=== PATIENT | female | born 1980 | race Caucasian/White ===

== ENCOUNTER 2020-10-28 20:47 | Emergency (ER) | payer MEDICAID, SELFPAY ==
[2020-10-28 20:53] VITALS: BP 188/89; PULSE 66; RESP 18; TEMP 36.8; O2SAT 97; BMI 40.7
--- NOTE | 2020-10-28 20:57 | ECG_ITS ---
Test Reason : CP Blood Pressure : / mmHG Vent. Rate : 072 BPM Atrial Rate : 072 BPM P-R Int : 182 ms QRS Dur : 084 ms QT Int : 428 ms P-R-T Axes : 044 000 021 degrees QTc Int : 468 ms Poor data quality, interpretation may be adversely affected Normal sinus rhythm Possible Anterior infarct , age undetermined Abnormal ECG When compared with ECG of 21-MAR-2018 13:01, No significant change was found Referred By: Generic ED Physician Electronically Signed By:Ildefonso Tello
--- NOTE | 2020-10-28 22:10 | XR_ITS ---
EXAMINATION: XR CHEST CLINICAL INFORMATION: Chest pain COMPARISON: 03/22/2020 TECHNIQUE: Frontal view of the chest was obtained. FINDINGS: No significant abnormality is noted involving the heart, lungs, mediastinum, bony thorax or soft tissues. XR/XR chest 1V IMPRESSION: Unremarkable examination.
--- NOTE | 2020-10-28 22:33 | ED.CHESTPAIN ---
HPI - Chest Pain General Chief Complaint: Chest Pain Stated Complaint: chest pain Time Seen by Provider: 10/28/20 22:10 Source: patient Mode of arrival: ambulatory History of Present Illness HPI narrative: This is a 40-year-old female with history of COPD and PVCs who states that today she began having headache with sinus like pressure without any associated fevers, chills and then states that she was having several episodes of her PVCs that ?felt different?. She denies any recent shortness of breath or increase in cough or sputum production but states that at approximately 6:30 p.m. this evening she began having chest pressure which she states was associated with left arm heaviness that has since completely resolved. Otherwise, she denies any GI symptoms or symptoms. Related Data Allergies Allergy/AdvReac Type Severity Reaction Status Date / Time trazodone [TRAZODONE] Allergy Unknown ANXIETY Verified 10/28/20 20:53 diazepam [From VALIUM] AdvReac Intermediate TREMORS Verified 10/28/20 20:53 hydrocodone [HYDROCODONE] AdvReac Intermediate NAUSEA & Verified 10/28/20 20:53 VOMITING From ULTRAM Allergy Unknown AGITATION Uncoded 07/10/20 17:10 Review of Systems Review of Systems: Pertinent positives and negatives as stated in the HPI 10 point review of systems is otherwise negative. PMFSH Past Medical History Source: nursing notes reviewed Medical History Anxiety Bipolar 1 disorder COPD (chronic obstructive pulmonary disease) Interstitial cystitis Opiate addiction PVC (premature ventricular contraction) Social History Social History Advance Directives: No Advance Directives Information Provided: No Physical Exam Vital Signs: Vital Signs: Last Vital Signs Temp 98.4 F 10/29/20 00:00 Pulse 63 10/29/20 00:00 Resp 16 10/29/20 00:00 BP 154/85 H 10/29/20 00:00 Pulse Ox 99 10/29/20 00:00 Body Mass Index 40.7 VITAL SIGNS: Reviewed. GENERAL: Well developed, well nourished, in no acute distress. HEAD: Normocephalic/atraumatic, EYES: PERRLA, EOMI intact without pain, no nystagmus/pallor/icterus noted EARS: Ext canals without abnormality, TMs non-bulging and non-erythematous NOSE: Nares patent bilateral OROPHARYNX: no oral lesions noted, posterior pharynx clear NECK: Supple, no adenopathy LUNGS: Normal breath sounds. No adventitious sounds or accessory muscle use. SpO2<97> CARDIOVASCULAR: Regular rate and rhythm without noted murmurs, no JVD or lower extremity edema. ABDOMEN: Obese, Soft, non-tender, non-distended with bowel sounds. No rigidity. No guarding. No palpable masses or hernias noted SKIN: Inspection of the skin reveals no rashes, mild diaphoresis noted NEUROLOGIC: Alert and oriented x 4. Course Course Course Narrative: This is a 40-year-old female with history and clinical presentation suggestive of possible opiate associated symptoms, but is also noted to have recently started a smoking cessation program with [employer]. Will investigate any cardiopulmonary etiologies. All investigations were reviewed and though there is a leukocytosis noted there is no corresponding left shift and no evidence on chest x-ray or urinalysis of infection. Chemistries were within normal limits and high sensitivity troponin taken together with an unchanged EKG doubt any cardiac ischemic event contributed to patient's presenting symptoms. All results and findings were discussed with her bedside and she was discharged home in stable condition. MDM - Chest Pain Lab Data Result diagrams: 10/28/20 22:32 10/28/20 22:32 Labs: Lab Results 10/28/20 10/28/20 10/28/20 Range/Units 22:32 22:32 22:32 WBC 15.2 H (4.8-10.8) X10*3/uL RBC 5.55 H (4.20-5.50) X10*6/uL Hgb 15.9 (12.0-16.0) g/dl Hct 48.9 H (37-47) % MCV 88.1 (80-98) fL MCH 28.6 (27.0-33.0) pg MCHC 32.5 (31.0-35.0) g/dl RDW 12.9 (11.0-16.0) % Plt Count 394 (160-400) X10*3/uL MPV 8.9 L (9.4-12.3) fL Immature Gran % (Auto) 0.5 H (0.0-0.4) % Neut % (Auto) 69.7 (45-73) % Lymph % (Auto) 23.2 (20-40) % [place] % (Auto) 4.7 (2-11) % Eos % (Auto) 1.4 (0-4) % Baso % (Auto) 0.5 (0-2) % Lymph # (Auto) 3.5 (1.2-4.9) X10*3/uL [place] # (Auto) 0.7 (0.1-1.2) X10*3/uL Eos # (Auto) 0.2 (0.0-0.4) X10*3/uL Baso # (Auto) 0.1 (0.0-0.2) X10*3/uL Abs Immat Gran (auto) 0.08 H (0.00-0.03) X10*3/uL Absolute Neuts (auto) 10.6 H (2.0-8.3) X10*3/uL Absolute Nucleated RBC 0.000 (0.0-0.012) X10*3/uL Nucleated RBC % (auto) 0.0 (0.0-0.2) /100WBC Sodium 136 (135-145) mmol/L Potassium 4.7 (3.3-5.1) mmol/l Chloride 99 (96-108) mmol/L Carbon Dioxide 26 (22-29) mmol/L Anion Gap 16 (12-20) BUN 7 L (9-16) mg/dL Creatinine 0.84 (0.5-1.4) mg/dL Estim Creat Clear Calc 109.4 Estimated GFR > 60 Random Glucose 115 (60-115) mg/dL Calcium 8.9 (8.4-10.2) mg/dL Total Bilirubin 0.3 (0.0-1.0) mg/dL AST 23 (5-31) U/L ALT 24 (0-31) U/L Alkaline Phosphatase 149 H (39-117) U/L Troponin I High Sens < 3.5 (<3.5-17.0) ng/L Total Protein 7.5 (6.5-8.0) g/dL Albumin 4.3 (3.5-5.0) g/dL Urine Color Urine Appearance Urine pH (5.0-8.0) Ur Specific [place] (1.005-1.025) Urine Protein (NEG-TRACE) MG/DL Urine Glucose (UA) (NEG) MG/DL Urine Ketones (NEG) MG/DL Urine Blood (NEG) Urine Nitrite (NEG) Ur Leukocyte Esterase (NEG) 10/29/20 Range/Units 00:21 WBC (4.8-10.8) X10*3/uL RBC (4.20-5.50) X10*6/uL Hgb (12.0-16.0) g/dl Hct (37-47) % MCV (80-98) fL MCH (27.0-33.0) pg MCHC (31.0-35.0) g/dl RDW (11.0-16.0) % Plt Count (160-400) X10*3/uL MPV (9.4-12.3) fL Immature Gran % (Auto) (0.0-0.4) % Neut % (Auto) (45-73) % Lymph % (Auto) (20-40) % [place] % (Auto) (2-11) % Eos % (Auto) (0-4) % Baso % (Auto) (0-2) % Lymph # (Auto) (1.2-4.9) X10*3/uL [place] # (Auto) (0.1-1.2) X10*3/uL Eos # (Auto) (0.0-0.4) X10*3/uL Baso # (Auto) (0.0-0.2) X10*3/uL Abs Immat Gran (auto) (0.00-0.03) X10*3/uL Absolute Neuts (auto) (2.0-8.3) X10*3/uL Absolute Nucleated RBC (0.0-0.012) X10*3/uL Nucleated RBC % (auto) (0.0-0.2) /100WBC Sodium (135-145) mmol/L Potassium (3.3-5.1) mmol/l Chloride (96-108) mmol/L Carbon Dioxide (22-29) mmol/L Anion Gap (12-20) BUN (9-16) mg/dL Creatinine (0.5-1.4) mg/dL Estim Creat Clear Calc Estimated GFR Random Glucose (60-115) mg/dL Calcium (8.4-10.2) mg/dL Total Bilirubin (0.0-1.0) mg/dL AST (5-31) U/L ALT (0-31) U/L Alkaline Phosphatase (39-117) U/L Troponin I High Sens (<3.5-17.0) ng/L Total Protein (6.5-8.0) g/dL Albumin (3.5-5.0) g/dL Urine Color YELLOW Urine Appearance CLEAR Urine pH 5.5 (5.0-8.0) Ur Specific [place] >= 1.030 H (1.005-1.025) Urine Protein NEG (NEG-TRACE) MG/DL Urine Glucose (UA) NEG (NEG) MG/DL Urine Ketones NEG (NEG) MG/DL Urine Blood TRACE (NEG) Urine Nitrite NEG (NEG) Ur Leukocyte Esterase NEG (NEG) ECG Data ECG #1: Attestation: I personally reviewed and interpreted this ECG as follows: Prior ECG tracings: available for review (03/21/2018 no acute changes on comparison) Interpretation: Normal sinus rhythm, HR -72, no evidence of acute ischemia (?possible anterior infarct? was seen on 03/21/2018), CT/QRS/QTC are within normal limits. Discharge Plan Discharge Clinical Impression: Atypical chest pain Patient Disposition: Home, Self-Care Instructions: Chest Pain (ED) Additional Instructions: Resume all home medications as prescribed. Recommend that you follow-up with your primary care provider for re-evaluation and outpatient management of your symptoms. Your symptoms may be related to smoking cessation. Please do not hesitate to return to the emergency department should you develop any acute worsening of your symptoms. Referrals: Margie Concepcion NP [Primary Care Provider] - 2 days (Re-evaluation outpatient management for atypical chest pain.)
[2020-10-28 22:37] LABS: MANUAL DIFF FLAG NO
[2020-10-28 22:38] LABS: Basophils Absolute Auto 0.1 X10*3/uL (0.0-0.2); Basophils Percent Auto 0.5 % (0-2); Eosinophils Absolute Auto 0.2 X10*3/uL (0.0-0.4); Eosinophils Percent Auto 1.4 % (0-4); Hematocrit 48.9 % (37-47); Hemoglobin 15.9 g/dl (12.0-16.0); Imm Gran Abs Auto 0.08 X10*3/uL (0.00-0.03); Imm Gran Pct Auto 0.5 % (0.0-0.4); Lymphocytes Absolute Auto 3.5 X10*3/uL (1.2-4.9); Lymphocytes Percent Auto 23.2 % (20-40); Mean Corpuscular HGB Conc 32.5 g/dl (31.0-35.0); Mean Corpuscular Hemoglobin 28.6 pg (27.0-33.0); Mean Corpuscular Volume 88.1 fL (80-98); Mean Platelet Volume 8.9 fL (9.4-12.3); Monocytes Absolute Auto 0.7 X10*3/uL (0.1-1.2); Monocytes Percent Auto 4.7 % (2-11); Neutrophils Absolute Auto 10.6 X10*3/uL (2.0-8.3); Neutrophils Percent Auto 69.7 % (45-73); Platelet Count 394 X10*3/uL (160-400); Red Blood Count 5.55 X10*6/uL (4.20-5.50); Red Cell Distribution Width 12.9 % (11.0-16.0); White Blood Count 15.2 X10*3/uL (4.8-10.8)
[2020-10-28 23:15] LABS: Alanine Aminotransferase 24 U/L (0-31); Albumin Level 4.3 g/dL (3.5-5.0); Alkaline Phosphatase 149 U/L (39-117); Anion Gap 16 (12-20); Aspartate Amino Transferase 23 U/L (5-31); Bilirubin Total 0.3 mg/dL (0.0-1.0); Blood Urea Nitrogen 7 mg/dL (9-16); Calcium 8.9 mg/dL (8.4-10.2); Carbon Dioxide 26 mmol/L (22-29); Chloride 99 mmol/L (96-108); Creatinine Clr Calc Pharmacy 109.4; Estimated Glomerular Filt Rate > 60; Glucose Random 115 mg/dL (60-115); Potassium 4.7 mmol/l (3.3-5.1); Sodium 136 mmol/L (135-145); Total Protein 7.5 g/dL (6.5-8.0)
[2020-10-28 23:19] LABS: Troponin-I High Sensitivity < 3.5 ng/L (<3.5-17.0)
[2020-10-29] VITALS: BP 154/85; PULSE 63; RESP 16; TEMP 36.9; O2SAT 99
[2020-10-29 00:39] LABS: Glucose Urine UA NEG (NEG); Leukocyte Esterase Urine NEG (NEG); Nitrite Urine NEG (NEG); PH 5.5 (5.0-8.0); Specific Gravity - Urine >= 1.030 (1.005-1.025); Urine Blood TRACE (NEG); Urine Ketones NEG (NEG); Urine Protein NEG (NEG-TRACE)
[2020-10-29 00:41] LABS: Appearance Urine CLEAR; Color Urine YELLOW
[2020-10-29 00:48] LABS: Bacteria Urine TRACE /LPF; RBC Urine 0-2 /HPF (0); Squamous Epithelial Cell Urine TRACE /LPF; WBC Urine 0-2 /HPF (0-4)
[2020-10-29 01:04] LABS: Amphetamine Screen Urine Not Detected (Not Detect); Barbiturates, Urine Not Detected (Not Detect); Benzodiazepines Screen Urine Not Detected (Not Detect); Cannabinoid Screen Urine Not Detected (Not Detect); Cocaine Screen Urine Not Detected (Not Detect); Opiate Screen Urine Not Detected (Not Detect); Phencyclidine Screen Urine Not Detected (Not Detect)
== END 2020-10-29 01:14 | disposition home or self-care (01) ==
PROVIDERS: Emergency Provider Student in an Organized Health Care Education/Training Program; PCP Nurse Practitioner Family
DX: R07.89 Other chest pain (principal); F11.10 Opioid abuse, uncomplicated; Z79.899 Other long term (current) drug therapy; J44.9 Chronic obstructive pulmonary disease, unspecified
CPT/HCPCS: 36415; 71045; 80053; 80307; 81001; 84484; 85025; 93005; 99283

== ENCOUNTER 2021-10-20 23:06 | Emergency (ER) | payer MEDICAID, SELFPAY ==
[2021-10-20 23:16] VITALS: BP 179/95; PULSE 83; RESP 15; TEMP 36.7; O2SAT 99; BMI 38.8
[2021-10-21 00:01] LABS: Appearance Urine HAZY; Color Urine YELLOW; Glucose Urine UA NEG (NEG); Leukocyte Esterase Urine NEG (NEG); Nitrite Urine NEG (NEG); PH 7.5 (5.0-8.0); Urine Blood NEG (NEG); Urine Ketones NEG (NEG); Urine Protein TRACE MG/DL (NEG-TRACE)
[2021-10-21 00:37] LABS: Alanine Aminotransferase 47 U/L (0-31); Alkaline Phosphatase 165 U/L (39-117); Anion Gap 14 (12-20); Aspartate Amino Transferase 39 U/L (5-31); Bilirubin Direct 0.2 mg/dL (0.0-0.5); Bilirubin Total 0.4 mg/dL (0.0-1.0); Blood Urea Nitrogen 6 mg/dL (9-16); Calcium 9.1 mg/dL (8.4-10.2); Carbon Dioxide 27 mmol/L (22-29); Chloride 101 mmol/L (96-108); Creatinine Clr Calc Pharmacy 113.5; Estimated Glomerular Filt Rate > 60; Glucose Random 138 mg/dL (60-115); Lipase 55 U/L (8-78); Potassium 4.4 mmol/L (3.3-5.1); Sodium 138 mmol/L (135-145); Total Protein 7.2 g/dL (6.5-8.0)
[2021-10-21 04:05] VITALS: BP 168/80; PULSE 84; RESP 16; TEMP 36.6; O2SAT 99
== END 2021-10-21 05:58 | disposition left against medical advice (07) ==
PROVIDERS: Emergency Provider Emergency Medicine
DX: R10.10 Upper abdominal pain, unspecified (principal)
CPT/HCPCS: 36415; 80053; 81003; 82248; 83690; 85025; 99283

== ENCOUNTER 2021-10-22 11:24 | Emergency (ER) | payer MEDICAID, SELFPAY ==
--- NOTE | ~2021-10-22 | US_ITS ---
EXAMINATION: US ABDOMEN LIMITED CLINICAL INFORMATION: Right upper quadrant pain. COMPARISON: CT scan of same day and of March 22, 2020 TECHNIQUE: Real-time imaging of the right upper quadrant abdominal viscera. FINDINGS: PANCREAS: Visualized portions of the head and body unremarkable without evidence of abnormal mass or peripancreatic inflammatory change. The tail of the pancreas is obscured by overlying bowel gas. LIVER: Hepatomegaly is present with vertical span of up to 21.5 cm. There is a subcentimeter cyst seen within the right lobe. The liver contour is normal. There is diffusely increased echogenicity consistent with fatty infiltration. There is no intrahepatic biliary duct dilatation seen. GALLBLADDER: Status post cholecystectomy. COMMON BILE DUCT: Normal in caliber measuring 0.7 cm in diameter. RIGHT KIDNEY: Normal. No hydronephrosis. No renal calculi or focal parenchymal lesions. The kidney measures 11.7 cm in maximum dimension. FREE FLUID: None. US/US abdomen limited IMPRESSION: Fatty infiltration of the liver. Hepatomegaly.
--- NOTE | ~2021-10-22 | CT_ITS ---
EXAMINATION: CT ABDOMEN AND PELVIS WITHOUT CONTRAST CLINICAL INFORMATION: Abdominal pain, diffuse. COMPARISON: 03/22/2020 TECHNIQUE: Multidetector volumetric imaging was performed from the superior aspect of the liver through the pubic symphysis. Sagittal and coronal reformatted images were obtained on the technologist's workstation. This CT examination was performed using dose optimization techniques as appropriate, variously including the following: *Automated exposure control *Adjustment of mA and/or kV according to patient size (this includes techniques or standardized protocols for targeted exams where dose is matched to indication/reason for exam; i.e. extremities or head) *Use of iterative reconstruction technique DLP: 868 mGy-cm FINDINGS: LUNG BASES: The visualized lung bases are unremarkable. LIVER, GALLBLADDER, AND BILIARY TREE: Relative hypoattenuation of the hepatic parenchyma is consistent with steatosis. The liver is enlarged, measuring craniocaudal. No focal lesions are identified on these images. Gallbladder is surgically absent. PANCREAS: Unremarkable. SPLEEN: Unremarkable. ADRENAL GLANDS: Normal KIDNEYS AND URETERS: A cluster of small calculi is evident at a lower pole calyx of the right kidney, with calculi measuring 4 mm in diameter. No obstructive uropathy. No additional renal or ureteral calculi. No hydronephrosis or hydroureter. Kidneys normal in size and contour. No suspicious lesions. There is a hypoattenuating (6 [place]) cystic focus at the interpolar region of the right kidney which was present on the prior study. No follow-up imaging recommended. BLADDER: Unremarkable. GASTROINTESTINAL TRACT: Stomach, small bowel, and colon are normal in caliber. No bowel wall thickening or surrounding inflammatory changes. Appendix is normal. No intraperitoneal free fluid or free air. ABDOMINAL WALL: No significant hernia is appreciated. LYMPH NODES: Normal. VASCULAR: Unremarkable. PELVIC VISCERA: The uterus and adnexa are unremarkable. OSSEOUS STRUCTURES: Mild degenerative disc disease in the thoracic spine with left convex scoliosis. There is mild osteoarthritis in the hips. CT/CT abdomen pelvis wo con IMPRESSION: Hepatomegaly and hepatic steatosis. No acute intra-abdominal or intrapelvic abnormalities. Small nonobstructing calculi at the right lower renal pole. No evidence of obstructive uropathy.
[2021-10-22 11:39] VITALS: BP 175/87; PULSE 72; RESP 19; TEMP 36.6; O2SAT 99; BMI 39.2
--- NOTE | 2021-10-22 12:59 | ED_ITS ---
HPI - Abdominal Pain General Chief Complaint: Abdominal Pain <JEAN-PIERRE Rolle - Last Filed: 10/22/21 18:02> Stated Complaint: abd pain, bloating <JEAN-PIERRE Rolle - Last Filed: 10/22/21 18:02> Time Seen by Provider: 10/22/21 12:59 <JEAN-PIERRE Rolle - Last Filed: 10/22/21 18:02> Source: patient <JEAN-PIERRE Rolle - Last Filed: 10/22/21 18:02> Mode of arrival: ambulatory <JEAN-PIERRE Rolle - Last Filed: 10/22/21 18:02> Limitations: no limitations <JEAN-PIERRE Rolle - Last Filed: 10/22/21 18:02> History of Present Illness HPI narrative: 41-year-old female past medical history significant for COPD, bipolar, anxiety, interstitial cystitis, PVCs presents to the emergency department with complaints of abdominal pain, distension times 1 week. Patient tells me that her abdominal distention has been present for about 2 months, progressively worsening. She tells me she feels bloated . She describes her abdominal pain is severe, 10/10, stabbing/ cramping. She tells me that the only thing that makes her abdominal pain better is methadone in the morning. Other than that she tells me the pain is excruciating throughout the day. She also reports a/c constipation for weeks and leg swelling. <JEAN-PIERRE Rolle - Last Filed: 10/22/21 18:02> MD elicited complaint: abdominal pain <JEAN-PIERRE Rolle - Last Filed: 10/22/21 18:02> Pertinent past history: none <JEAN-PIERRE Rolle - Last Filed: 10/22/21 18:02> Onset (ago): week(s) (1) <JEAN-PIERRE Rolle - Last Filed: 10/22/21 18:02> Pain Consistency: constant <JEAN-PIERRE Rolle - Last Filed: 10/22/21 18:02> Location: diffuse <JEAN-PIERRE Rolle - Last Filed: 10/22/21 18:02> Severity: severe <JEAN-PIERRE Rolle Last Filed: 10/22/21 18:02> Pain scale (0-10): 10 <JEAN-PIERRE Rolle - Last Filed: 10/22/21 18:02> Quality: cramping <JEAN-PIERRE Rolle Last Filed: 10/22/21 18:02> Radiation: none <JEAN-PIERRE Rolle - Last Filed: 10/22/21 18:02> Migration to: no migration <JEAN-PIERRE Rolle - Last Filed: 10/22/21 18:02> Exacerbating factors: nothing <JEAN-PIERRE Rolle - Last Filed: 10/22/21 18:02> Relieving factors: other (methadone) <JEAN-PIERRE Rolle Last Filed: 10/22/21 18:02> Associated symptoms: denies other symptoms <JEAN-PIERRE Rolle - Last Filed: 10/22/21 18:02> Related Data Allergies/Adverse Reactions: Allergies Allergy/AdvReac Type Severity Reaction Status Date / Time trazodone [TRAZODONE] Allergy Unknown ANXIETY Verified 10/28/20 20:53 diazepam [From VALIUM] AdvReac Intermediate TREMORS Verified 10/28/20 20:53 hydrocodone [HYDROCODONE] AdvReac Intermediate NAUSEA & Verified 10/28/20 20:53 VOMITING From ULTRAM Allergy Unknown AGITATION Uncoded 07/10/20 17:10 <JEAN-PIERRE Rolle Last Filed: 10/22/21 18:02> Review of Systems Review of Systems Constitutional : No Weight loss, No Fever, No Chills ENT/Mouth :? No sore throat, No Rhinorrhea Eyes: No Swelling, No Redness Cardiovascular : No Chest Pain, No SOB, + Edema Respiratory : No Cough, No Sputum, No Wheezing Gastrointestinal : No Nausea, No Vomiting, No Diarrhea, + abdominal Pain, No Hematochezia, No Melena Genitourinary : No Dysuria, No Urinary Frequency, No Hematuria, No Urgency Musculoskeletal : No joint pain, No Myalgias, No Joint Swelling Skin : No Skin Lesions, No rash Neuro : No Weakness, No Numbness, No Dizziness, No Headache Psych : No Anxiety/Panic, No Depression Heme/Lymph: No Bruising, No Lymphadenopathy Endocrine : No Polyuria, No Polydipsia All other systems reviewed and are negative. <JEAN-PIERRE Rolle - Last Filed: 10/22/21 18:02> Yes all other systems are reviewed and are negative <JEAN-PIERRE Rolle - Last Filed: 10/22/21 18:02> Physical Exam Vital Signs: Vital Signs: Last Vital Signs Temp 98.2 F 10/22/21 18:34 Pulse 60 10/22/21 18:34 Resp 18 10/22/21 18:34 BP 146/65 H 10/22/21 18:34 Pulse Ox 96 10/22/21 18:34 BMI result Body Mass Index 39.2 vital signs stable, patient noted to be slightly hypertensive. <JEAN-PIERRE Rolle - Last Filed: 10/22/21 18:02> Vital Signs: Last Vital Signs Temp 98.2 F 10/22/21 18:34 Pulse 60 10/22/21 18:34 Resp 18 10/22/21 18:34 BP 146/65 H 10/22/21 18:34 Pulse Ox 96 10/22/21 18:34 BMI result Body Mass Index 39.2 <JEAN-PIERRE Brock - Last Filed: 10/22/21 19:40> Appearance: Alert.? Oriented X3.? No acute distress.? Head: Normocephalic, atraumatic, no step-offs or deformities Eyes: Pupils equal, round and reactive to light.? ENT: Pharynx normal.? Neck: Normal inspection.? Neck supple.? CVS: Normal heart rate and rhythm.? Pulses normal.? Respiratory: No respiratory distress.? Breath sounds normal.? Abdomen: Soft and + Diffusely tender. normoactive bowel sounds. Abdominal distention with positive fluid wave noted.? Skin: Skin warm and dry.? Normal skin color.? Normal skin turgor.? Extremities: No lower extremity edema.? No calf ttp. 5/5 strength to bilateral upper and lower extremities Back: No midline tenderness, no C-spine tenderness, full range of motion, no CVA tenderness bilaterally Neuro: Oriented X 3.? No motor deficit.? No sensory deficit. <JEAN-PIERRE Rolle - Last Filed: 10/22/21 18:02> Course Reevaluation(s) Reevaluation #1: Patient noted to have a slight leukocytosis 11.3, however, this appears to be patient's baseline. Carbon dioxide elevated 34, patient's transaminases are noted to be elevated, they were previously elevated 2 days ago as well. Alk-phos also elevated. I will also order a RUQ US. <JEAN-PIERRE Rolle - Last Filed: 10/22/21 18:02> Time: 14:55 <JEAN-PIERRE Rolle - Last Filed: 10/22/21 18:02> Reevaluation #2: snow technician inform me that patient's line infiltrated and patient is reporting pain at the site. Warm compresses have been applied to the area. Likely phlebitis sign out was given to Jossy MOREJON <JEAN-PIERRE Rolle - Last Filed: 10/22/21 18:02> Time: 18:02 <JEAN-PIERRE Rolle - Last Filed: 10/22/21 18:02> Reevaluation #3: Patient's CT scans and right upper quadrant ultrasound showing hepatic steatosis and hepatomegaly. She reports her symptoms have been going on for years and she has had chronically elevated liver enzymes. She has never seen a GI doctor for this. She has known she has had fatty liver and has been trying to lose weight but her other medical problems make it difficult. She is interested in seeing a GI doctor for this. She is stable for discharge from the ER with plan for outpatient follow-up. Her phlebitis has significantly improved as well <JEAN-PIERRE Brock - Last Filed: 10/22/21 19:40> Time: 19:39 <JEAN-PIERRE Brokc - Last Filed: 10/22/21 19:40> MDM - Abdominal Pain MDM Narrative Medical decision making narrative: 1342 41 YO F COPD, bipolar, anxiety, interstitial cystitis, PVCs, opiate use d/o on methadone presents to ED with diffuse severe abdominal pain, and distention. No hx of hep C or cirrhosis. Never was a heavy drinker. PE Significant for distended abdomen normoactive bowel sounds and diffusely tender on palpation. Regular rate rhythm. Lungs are clear. No focal neuro deficits Plan- basic labs and CT scan <JEAN-PIERRE Rolle - Last Filed: 10/22/21 18:02> Medical Records Attestation: I reviewed the patient's medical records. <JEAN-PIERRE Rolle - Last Filed: 10/22/21 18:02> Lab Data Attestation: I reviewed the patient's lab results. <JEAN-PIERRE Rolle - Last Filed: 10/22/21 18:02> Result diagrams: : 10/22/21 14:16 10/22/21 14:16 <JEAN-PIERRE Rolle - Last Filed: 10/22/21 18:02> Labs: Lab Results 10/22/21 10/22/21 10/22/21 Range/Units 14:10 14:16 14:16 WBC 11.3 H (4.8-10.8) X10*3/uL RBC 4.71 (4.20-5.50) X10*6/uL Hgb 14.4 (12.0-16.0) g/dl Hct 43.9 (37.0-47.0) % MCV 93.2 (80.0-98.0) fL MCH 30.6 (27.0-33.0) pg MCHC 32.8 (31.0-35.0) g/dl RDW 13.4 (11.0-16.0) % Plt Count 315 (160-400) X10*3/uL MPV 9.5 (9.4-12.3) fL Immature Gran % (Auto) 0.9 H (0.0-0.4) % Neut % (Auto) 63.3 (45-73) % Lymph % (Auto) 27.8 (20-40) % Churchill % (Auto) 6.0 (2-11) % Eos % (Auto) 1.6 (0-4) % Baso % (Auto) 0.4 (0-2) % Lymph # (Auto) 3.1 (1.2-4.9) X10*3/uL Churchill # (Auto) 0.7 (0.1-1.2) X10*3/uL Eos # (Auto) 0.2 (0.0-0.4) X10*3/uL Baso # (Auto) 0.1 (0.0-0.2) X10*3/uL Abs Immat Gran (auto) 0.10 H (0.00-0.03) X10*3/uL Absolute Neuts (auto) 7.2 (2.0-8.3) x10*3/uL Absolute Nucleated RBC 0.000 (0.0-0.012) X10*3/uL Nucleated RBC % (auto) 0.0 (0.0-0.2) /100WBC Sodium 138 (135-145) mmol/L Potassium 4.3 (3.3-5.1) mmol/L Chloride 99 (96-108) mmol/L Carbon Dioxide 34 H (22-29) mmol/L Anion Gap 9 L (12-20) BUN 7 L (9-16) mg/dL Creatinine 0.72 (0.5-1.4) mg/dL Estim Creat Clear Calc 123.7 Estimated GFR > 60 Random Glucose 142 H (60-115) mg/dL Calcium 9.5 (8.4-10.2) mg/dL Magnesium 2.0 (1.6-2.6) mg/dL Total Bilirubin 0.5 (0.0-1.0) mg/dL AST 32 H (5-31) U/L ALT 49 H (0-31) U/L Alkaline Phosphatase 170 H (39-117) U/L B-Natriuretic Peptide (<100) pg/mL Total Protein 7.0 (6.5-8.0) g/dL Albumin 4.0 (3.5-5.0) g/dL Lipase 38 (8-78) U/L Beta HCG, Quant mIU/mL Urine Color Urine Appearance Urine pH (5.0-8.0) Ur Specific [place] (1.005-1.025) Urine Protein (NEG-TRACE) MG/DL Urine Glucose (UA) (NEG) MG/DL Urine Ketones (NEG) MG/DL Urine Blood (NEG) Urine Nitrite (NEG) Ur Leukocyte Esterase (NEG) Urine Test (NEGATIVE) COVID-19 ([facility]) Negative (Negative) COVID-19 Clin Com See Note 10/22/21 10/22/21 10/22/21 Range/Units 14:16 14:16 14:22 WBC (4.8-10.8) X10*3/uL RBC (4.20-5.50) X10*6/uL Hgb (12.0-16.0) g/dl Hct (37.0-47.0) % MCV (80.0-98.0) fL MCH (27.0-33.0) pg MCHC (31.0-35.0) g/dl RDW (11.0-16.0) % Plt Count (160-400) X10*3/uL MPV (9.4-12.3) fL Immature Gran % (Auto) (0.0-0.4) % Neut % (Auto) (45-73) % Lymph % (Auto) (20-40) % Churchill % (Auto) (2-11) % Eos % (Auto) (0-4) % Baso % (Auto) (0-2) % Lymph # (Auto) (1.2-4.9) X10*3/uL Churchill # (Auto) (0.1-1.2) X10*3/uL Eos # (Auto) (0.0-0.4) X10*3/uL Baso # (Auto) (0.0-0.2) X10*3/uL Abs Immat Gran (auto) (0.00-0.03) X10*3/uL Absolute Neuts (auto) (2.0-8.3) x10*3/uL Absolute Nucleated RBC (0.0-0.012) X10*3/uL Nucleated RBC % (auto) (0.0-0.2) /100WBC Sodium (135-145) mmol/L Potassium (3.3-5.1) mmol/L Chloride (96-108) mmol/L Carbon Dioxide (22-29) mmol/L Anion Gap (12-20) BUN (9-16) mg/dL Creatinine (0.5-1.4) mg/dL Estim Creat Clear Calc Estimated GFR Random Glucose (60-115) mg/dL Calcium (8.4-10.2) mg/dL Magnesium (1.6-2.6) mg/dL Total Bilirubin (0.0-1.0) mg/dL AST (5-31) U/L ALT (0-31) U/L Alkaline Phosphatase (39-117) U/L B-Natriuretic Peptide 44 (<100) pg/mL Total Protein (6.5-8.0) g/dL Albumin (3.5-5.0) g/dL Lipase (8-78) U/L Beta HCG, Quant < 2 mIU/mL Urine Color Urine Appearance Urine pH (5.0-8.0) Ur Specific [place] (1.005-1.025) Urine Protein (NEG-TRACE) MG/DL Urine Glucose (UA) (NEG) MG/DL Urine Ketones (NEG) MG/DL Urine Blood (NEG) Urine Nitrite (NEG) Ur Leukocyte Esterase (NEG) Urine Test NEGATIVE (NEGATIVE) COVID-19 ([facility]) (Negative) COVID-19 Clin Com 10/22/21 Range/Units 14:22 WBC (4.8-10.8) X10*3/uL RBC (4.20-5.50) X10*6/uL Hgb (12.0-16.0) g/dl Hct (37.0-47.0) % MCV (80.0-98.0) fL MCH (27.0-33.0) pg MCHC (31.0-35.0) g/dl RDW (11.0-16.0) % Plt Count (160-400) X10*3/uL MPV (9.4-12.3) fL Immature Gran % (Auto) (0.0-0.4) % Neut % (Auto) (45-73) % Lymph % (Auto) (20-40) % Churchill % (Auto) (2-11) % Eos % (Auto) (0-4) % Baso % (Auto) (0-2) % Lymph # (Auto) (1.2-4.9) X10*3/uL Churchill # (Auto) (0.1-1.2) X10*3/uL Eos # (Auto) (0.0-0.4) X10*3/uL Baso # (Auto) (0.0-0.2) X10*3/uL Abs Immat Gran (auto) (0.00-0.03) X10*3/uL Absolute Neuts (auto) (2.0-8.3) x10*3/uL Absolute Nucleated RBC (0.0-0.012) X10*3/uL Nucleated RBC % (auto) (0.0-0.2) /100WBC Sodium (135-145) mmol/L Potassium (3.3-5.1) mmol/L Chloride (96-108) mmol/L Carbon Dioxide (22-29) mmol/L Anion Gap (12-20) BUN (9-16) mg/dL Creatinine (0.5-1.4) mg/dL Estim Creat Clear Calc Estimated GFR Random Glucose (60-115) mg/dL Calcium (8.4-10.2) mg/dL Magnesium (1.6-2.6) mg/dL Total Bilirubin (0.0-1.0) mg/dL AST (5-31) U/L ALT (0-31) U/L Alkaline Phosphatase (39-117) U/L B-Natriuretic Peptide (<100) pg/mL Total Protein (6.5-8.0) g/dL Albumin (3.5-5.0) g/dL Lipase (8-78) U/L Beta HCG, Quant mIU/mL Urine Color YELLOW Urine Appearance CLEAR Urine pH 6.0 (5.0-8.0) Ur Specific [place] 1.025 (1.005-1.025) Urine Protein NEG (NEG-TRACE) MG/DL Urine Glucose (UA) NEG (NEG) MG/DL Urine Ketones NEG (NEG) MG/DL Urine Blood NEG (NEG) Urine Nitrite NEG (NEG) Ur Leukocyte Esterase NEG (NEG) Urine Test (NEGATIVE) COVID-19 ([facility]) (Negative) COVID-19 Clin Com <JEAN-PIERRE Rolle - Last Filed: 10/22/21 18:02> Lab Results 10/22/21 10/22/21 10/22/21 Range/Units 14:10 14:16 14:16 WBC 11.3 H (4.8-10.8) X10*3/uL RBC 4.71 (4.20-5.50) X10*6/uL Hgb 14.4 (12.0-16.0) g/dl Hct 43.9 (37.0-47.0) % MCV 93.2 (80.0-98.0) fL MCH 30.6 (27.0-33.0) pg MCHC 32.8 (31.0-35.0) g/dl RDW 13.4 (11.0-16.0) % Plt Count 315 (160-400) X10*3/uL MPV 9.5 (9.4-12.3) fL Immature Gran % (Auto) 0.9 H (0.0-0.4) % Neut % (Auto) 63.3 (45-73) % Lymph % (Auto) 27.8 (20-40) % Churchill % (Auto) 6.0 (2-11) % Eos % (Auto) 1.6 (0-4) % Baso % (Auto) 0.4 (0-2) % Lymph # (Auto) 3.1 (1.2-4.9) X10*3/uL Churchill # (Auto) 0.7 (0.1-1.2) X10*3/uL Eos # (Auto) 0.2 (0.0-0.4) X10*3/uL Baso # (Auto) 0.1 (0.0-0.2) X10*3/uL Abs Immat Gran (auto) 0.10 H (0.00-0.03) X10*3/uL Absolute Neuts (auto) 7.2 (2.0-8.3) x10*3/uL Absolute Nucleated RBC 0.000 (0.0-0.012) X10*3/uL Nucleated RBC % (auto) 0.0 (0.0-0.2) /100WBC Sodium 138 (135-145) mmol/L Potassium 4.3 (3.3-5.1) mmol/L Chloride 99 (96-108) mmol/L Carbon Dioxide 34 H (22-29) mmol/L Anion Gap 9 L (12-20) BUN 7 L (9-16) mg/dL Creatinine 0.72 (0.5-1.4) mg/dL Estim Creat Clear Calc 123.7 Estimated GFR > 60 Random Glucose 142 H (60-115) mg/dL Calcium 9.5 (8.4-10.2) mg/dL Magnesium 2.0 (1.6-2.6) mg/dL Total Bilirubin 0.5 (0.0-1.0) mg/dL AST 32 H (5-31) U/L ALT 49 H (0-31) U/L Alkaline Phosphatase 170 H (39-117) U/L B-Natriuretic Peptide (<100) pg/mL Total Protein 7.0 (6.5-8.0) g/dL Albumin 4.0 (3.5-5.0) g/dL Lipase 38 (8-78) U/L Beta HCG, Quant mIU/mL Urine Color Urine Appearance Urine pH (5.0-8.0) Ur Specific [place] (1.005-1.025) Urine Protein (NEG-TRACE) MG/DL Urine Glucose (UA) (NEG) MG/DL Urine Ketones (NEG) MG/DL Urine Blood (NEG) Urine Nitrite (NEG) Ur Leukocyte Esterase (NEG) Urine Test (NEGATIVE) COVID-19 ([facility]) Negative (Negative) COVID-19 Clin Com See Note 10/22/21 10/22/21 10/22/21 Range/Units 14:16 14:16 14:22 WBC (4.8-10.8) X10*3/uL RBC (4.20-5.50) X10*6/uL Hgb (12.0-16.0) g/dl Hct (37.0-47.0) % MCV (80.0-98.0) fL MCH (27.0-33.0) pg MCHC (31.0-35.0) g/dl RDW (11.0-16.0) % Plt Count (160-400) X10*3/uL MPV (9.4-12.3) fL Immature Gran % (Auto) (0.0-0.4) % Neut % (Auto) (45-73) % Lymph % (Auto) (20-40) % Churchill % (Auto) (2-11) % Eos % (Auto) (0-4) % Baso % (Auto) (0-2) % Lymph # (Auto) (1.2-4.9) X10*3/uL Churchill # (Auto) (0.1-1.2) X10*3/uL Eos # (Auto) (0.0-0.4) X10*3/uL Baso # (Auto) (0.0-0.2) X10*3/uL Abs Immat Gran (auto) (0.00-0.03) X10*3/uL Absolute Neuts (auto) (2.0-8.3) x10*3/uL Absolute Nucleated RBC (0.0-0.012) X10*3/uL Nucleated RBC % (auto) (0.0-0.2) /100WBC Sodium (135-145) mmol/L Potassium (3.3-5.1) mmol/L Chloride (96-108) mmol/L Carbon Dioxide (22-29) mmol/L Anion Gap (12-20) BUN (9-16) mg/dL Creatinine (0.5-1.4) mg/dL Estim Creat Clear Calc Estimated GFR Random Glucose (60-115) mg/dL Calcium (8.4-10.2) mg/dL Magnesium (1.6-2.6) mg/dL Total Bilirubin (0.0-1.0) mg/dL AST (5-31) U/L ALT (0-31) U/L Alkaline Phosphatase (39-117) U/L B-Natriuretic Peptide 44 (<100) pg/mL Total Protein (6.5-8.0) g/dL Albumin (3.5-5.0) g/dL Lipase (8-78) U/L Beta HCG, Quant < 2 mIU/mL Urine Color Urine Appearance Urine pH (5.0-8.0) Ur Specific [place] (1.005-1.025) Urine Protein (NEG-TRACE) MG/DL Urine Glucose (UA) (NEG) MG/DL Urine Ketones (NEG) MG/DL Urine Blood (NEG) Urine Nitrite (NEG) Ur Leukocyte Esterase (NEG) Urine Test NEGATIVE (NEGATIVE) COVID-19 ([facility]) (Negative) COVID-19 Clin Com 10/22/21 Range/Units 14:22 WBC (4.8-10.8) X10*3/uL RBC (4.20-5.50) X10*6/uL Hgb (12.0-16.0) g/dl Hct (37.0-47.0) % MCV (80.0-98.0) fL MCH (27.0-33.0) pg MCHC (31.0-35.0) g/dl RDW (11.0-16.0) % Plt Count (160-400) X10*3/uL MPV (9.4-12.3) fL Immature Gran % (Auto) (0.0-0.4) % Neut % (Auto) (45-73) % Lymph % (Auto) (20-40) % Churchill % (Auto) (2-11) % Eos % (Auto) (0-4) % Baso % (Auto) (0-2) % Lymph # (Auto) (1.2-4.9) X10*3/uL Churchill # (Auto) (0.1-1.2) X10*3/uL Eos # (Auto) (0.0-0.4) X10*3/uL Baso # (Auto) (0.0-0.2) X10*3/uL Abs Immat Gran (auto) (0.00-0.03) X10*3/uL Absolute Neuts (auto) (2.0-8.3) x10*3/uL Absolute Nucleated RBC (0.0-0.012) X10*3/uL Nucleated RBC % (auto) (0.0-0.2) /100WBC Sodium (135-145) mmol/L Potassium (3.3-5.1) mmol/L Chloride (96-108) mmol/L Carbon Dioxide (22-29) mmol/L Anion Gap (12-20) BUN (9-16) mg/dL Creatinine (0.5-1.4) mg/dL Estim Creat Clear Calc Estimated GFR Random Glucose (60-115) mg/dL Calcium (8.4-10.2) mg/dL Magnesium (1.6-2.6) mg/dL Total Bilirubin (0.0-1.0) mg/dL AST (5-31) U/L ALT (0-31) U/L Alkaline Phosphatase (39-117) U/L B-Natriuretic Peptide (<100) pg/mL Total Protein (6.5-8.0) g/dL Albumin (3.5-5.0) g/dL Lipase (8-78) U/L Beta HCG, Quant mIU/mL Urine Color YELLOW Urine Appearance CLEAR Urine pH 6.0 (5.0-8.0) Ur Specific [place] 1.025 (1.005-1.025) Urine Protein NEG (NEG-TRACE) MG/DL Urine Glucose (UA) NEG (NEG) MG/DL Urine Ketones NEG (NEG) MG/DL Urine Blood NEG (NEG) Urine Nitrite NEG (NEG) Ur Leukocyte Esterase NEG (NEG) Urine Test (NEGATIVE) COVID-19 ([facility]) (Negative) COVID-19 Clin Com <JEAN-PIERRE Brock - Last Filed: 10/22/21 19:40> Critical Care Time Critical Care Time Critical Care Time: No <JEAN-PIERRE Rolle - Last Filed: 10/22/21 18:02> Discharge Plan Discharge Clinical Impression: Phlebitis, Hepatic steatosis Abdominal pain Qualifiers: Abdominal location: generalized Qualified Code(s): R10.84 - Generalized abdominal pain <JEAN-PIERRE Rolle - Last Filed: 10/22/21 18:02> Patient Disposition: Home, Self-Care <JEAN-PIERRE Rolle - Last Filed: 10/22/21 18:02> Instructions: Non-Alcoholic Fatty Liver Disease (ED), Abdominal Pain (ED) <JEAN-PIERRE Rolle - Last Filed: 10/22/21 18:02> Additional Instructions: CT scan and ultrasound today showed fatty liver. See information provided. Recommend following up with GI-name and number below. Take your medications as prescribed. Follow-up with your primary care provider this week. Return to the emergency department with new or worsening symptoms. In case of emergency call 911 <JEAN-PIERRE Rolle - Last Filed: 10/22/21 18:02> Referrals: Margie Concepcion NP [Primary Care Provider] - 2 days Jimbo Nascimento [Physician] - 2 days (Hepatic steatosis, abdominal distention) <JEAN-PIERRE Rolle - Last Filed: 10/22/21 18:02> Stand Alone Forms: Work/School Release <JEAN-PIERRE Rolle - Last Filed: 10/22/21 18:02> PMFSH Past Medical History Attestation statement: The following information was validated with the patient. <JEAN-PIERRE Rolle - Last Filed: 10/22/21 18:02> Source: old records reviewed and nursing notes reviewed <JEAN-PIERRE Rolle - Last Filed: 10/22/21 18:02> Medical History: Medical History Anxiety Bipolar 1 disorder COPD (chronic obstructive pulmonary disease) Interstitial cystitis Opiate addiction PVC (premature ventricular contraction) <JEAN-PIERRE Rolle - Last Filed: 10/22/21 18:02> Social History Social History: Social History Advance Directives: No Advance Directives Information Provided: No Patient : No <JEAN-PIERRE Rolle - Last Filed: 10/22/21 18:02>
[2021-10-22 14:19] VITALS: BP 156/85; PULSE 71; RESP 18; TEMP 37; O2SAT 97
[2021-10-22 14:28] LABS: MANUAL DIFF FLAG NO
[2021-10-22 14:30] LABS: Basophils Absolute Auto 0.1 X10*3/uL (0.0-0.2); Basophils Percent Auto 0.4 % (0-2); Eosinophils Absolute Auto 0.2 X10*3/uL (0.0-0.4); Eosinophils Percent Auto 1.6 % (0-4); Hematocrit 43.9 % (37.0-47.0); Hemoglobin 14.4 g/dl (12.0-16.0); Imm Gran Pct Auto 0.9 % (0.0-0.4); Lymphocytes Absolute Auto 3.1 X10*3/uL (1.2-4.9); Lymphocytes Percent Auto 27.8 % (20-40); Mean Corpuscular HGB Conc 32.8 g/dl (31.0-35.0); Mean Corpuscular Hemoglobin 30.6 pg (27.0-33.0); Mean Corpuscular Volume 93.2 fL (80.0-98.0); Mean Platelet Volume 9.5 fL (9.4-12.3); Monocytes Absolute Auto 0.7 X10*3/uL (0.1-1.2); Neutrophils Absolute Auto 7.2 x10*3/uL (2.0-8.3); Neutrophils Percent Auto 63.3 % (45-73); Platelet Count 315 X10*3/uL (160-400); Red Blood Count 4.71 X10*6/uL (4.20-5.50); Red Cell Distribution Width 13.4 % (11.0-16.0); White Blood Count 11.3 X10*3/uL (4.8-10.8)
[2021-10-22 14:31] LABS: Appearance Urine CLEAR; Color Urine YELLOW; Glucose Urine UA NEG (NEG); Leukocyte Esterase Urine NEG (NEG); Nitrite Urine NEG (NEG); Specific Gravity - Urine 1.025 (1.005-1.025); Urine Blood NEG (NEG); Urine Ketones NEG (NEG); Urine Protein NEG (NEG-TRACE)
[2021-10-22 14:33] LABS: UPreg QC Valid YES; Urine Pregnancy NEGATIVE (NEGATIVE)
[2021-10-22 14:46] LABS: COVID-19 Test Negative (Negative)
[2021-10-22 14:46] LABS: Alanine Aminotransferase 49 U/L (0-31); Alkaline Phosphatase 170 U/L (39-117); Anion Gap 9 (12-20); Aspartate Amino Transferase 32 U/L (5-31); Bilirubin Total 0.5 mg/dL (0.0-1.0); Blood Urea Nitrogen 7 mg/dL (9-16); Calcium 9.5 mg/dL (8.4-10.2); Carbon Dioxide 34 mmol/L (22-29); Chloride 99 mmol/L (96-108); Creatinine Clr Calc Pharmacy 123.7; Estimated Glomerular Filt Rate > 60; Glucose Random 142 mg/dL (60-115); Lipase 38 U/L (8-78); Potassium 4.3 mmol/L (3.3-5.1); Sodium 138 mmol/L (135-145)
[2021-10-22 14:48] LABS: B Type Natriuretic Peptide 44 pg/mL (<100)
[2021-10-22 14:49] LABS: HCG Quantitative < 2 mIU/mL
[2021-10-22 16:08] VITALS: BP 154/74; PULSE 66; RESP 18; TEMP 36.7; O2SAT 97
[2021-10-22 18:34] VITALS: BP 146/65; PULSE 60; RESP 18; TEMP 36.8; O2SAT 96
== END 2021-10-22 19:40 | disposition home or self-care (01) ==
PROVIDERS: Physician Assistant; Emergency Provider Emergency Medicine; PCP Nurse Practitioner Family
DX: I80.9 Phlebitis and thrombophlebitis of unspecified site (principal); K76.0 Fatty (change of) liver, not elsewhere classified; R60.0 Localized edema; R10.84 Generalized abdominal pain; Z20.822 Contact with and (suspected) exposure to COVID-19; Z79.899 Other long term (current) drug therapy
CPT/HCPCS: 36415; 74176; 76705; 80053; 81003; 81025; 83690; 83735; 83880; 84702; 85025; 87635; 96374; 99284

== ENCOUNTER 2022-07-29 11:31 | Outpatient (REF) | payer MEDICAID, SELFPAY ==
[2022-07-29 11:53] LABS: MANUAL DIFF FLAG NO
[2022-07-29 12:19] LABS: Basophils Absolute Auto 0.1 X10*3/uL (0.0-0.2); Basophils Percent Auto 0.6 % (0-2); Eosinophils Absolute Auto 0.2 X10*3/uL (0.0-0.4); Eosinophils Percent Auto 1.2 % (0-4); Hematocrit 47.7 % (37.0-47.0); Hemoglobin 15.5 g/dl (12.0-16.0); Imm Gran Abs Auto 0.09 X10*3/uL (0.00-0.03); Imm Gran Pct Auto 0.7 % (0.0-0.4); Lymphocytes Absolute Auto 3.3 X10*3/uL (1.2-4.9); Lymphocytes Percent Auto 25.7 % (20-40); Mean Corpuscular HGB Conc 32.5 g/dl (31.0-35.0); Mean Corpuscular Hemoglobin 28.9 pg (27.0-33.0); Mean Corpuscular Volume 88.8 fL (80.0-98.0); Mean Platelet Volume 10.4 fL (9.4-12.3); Monocytes Absolute Auto 0.6 X10*3/uL (0.1-1.2); Monocytes Percent Auto 4.9 % (2-11); Neutrophils Absolute Auto 8.7 x10*3/uL (2.0-8.3); Neutrophils Percent Auto 66.9 % (45-73); Platelet Count 313 X10*3/uL (160-400); Red Blood Count 5.37 X10*6/uL (4.20-5.50); Red Cell Distribution Width 13.6 % (11.0-16.0); White Blood Count 12.9 X10*3/uL (4.8-10.8)
[2022-07-29 12:24] LABS: INTERNATIONAL NORM RATIO 0.9 (0.9-1.1); Prothrombin Time 10.7 SEC (10.0-13.1)
[2022-07-29 13:01] LABS: Alanine Aminotransferase 50 U/L (0-31); Albumin Level 4.3 g/dL (3.5-5.0); Alkaline Phosphatase 181 U/L (39-117); Aspartate Amino Transferase 39 U/L (5-31); Bilirubin Direct 0.2 mg/dL (0.0-0.5); Bilirubin Total 0.4 mg/dL (0.0-1.0); Iron 64 mcg/dL (30-160); Percent Iron Saturation 24 % (15-50); Total Iron Binding Capacity 263 mcg/dL (228-428); Total Protein 7.1 g/dL (6.5-8.0); Unsaturated Iron Binding 199 ug/dL
[2022-07-29 13:24] LABS: Ferritin 249 ng/mL (10-250); TSH reflex Free T4 0.84 uIU/mL (0.32-4.0)
[2022-07-30 03:58] LABS: Hepatitis A Antibody IgG Nonreactive (Nonreactive); ~Hepatitis A Antibody IgG 0.31 S/CO (0.00-0.99)
[2022-07-30 04:10] LABS: HBS Num1 7.81 mIU/mL (0-7.99); HBc Num1 0.05 S/CO (0.00-0.79); HBsAGNum1 1.25 S/CO (0.00-0.99); Hepatitis B Core Antibody Nonreactive (Nonreactive); ~HepC Num1 0.17 S/CO (0.00-0.79); ~Hepatitis B Surface Antibody NONREACTIVE (Nonreactive); ~Hepatitis C Antibody Nonreactive (Nonreactive)
[2022-07-30 05:00] LABS: HBsAGNum2 Reactive; HBsAGNum3 Reactive; Hepatitis B Surface Antigen Retest CNFM (Negative)
[2022-07-30 05:49] LABS: Hepatitis B Surface Antigen Rep Reactive (Negative); Neutralization % 14; R2 S/CO 1.08 S/CO
[2022-07-31 14:07] LABS: Alpha 1 Anti-trypsin 212 mg/dL (83-199); Ceruloplasmin 32 mg/dL (18-53)
[2022-08-03 01:17] LABS: FIB-ALT 45 U/L (6-29); FIB-Alpha-2-Macroglobulin 206 mg/dL (106-279); FIB-Apolipoprotein A1 156 mg/dL (101-198); FIB-GGT 218 U/L (3-55); FIB-Haptoglobin 259 mg/dL (43-212); FIB-Total Bilirubin 0.3 mg/dL (0.2-1.2); Liver Fibrosis Score 0.15; Liver Fibrosis Stage F0; Nec Inflam Act Grade A0-A1; Nec Inflam Act Score 0.21
[2022-08-04 09:32] LABS: Mitochondrial Antibodies NEGATIVE (NEGATIVE)
[2022-08-04 13:26] LABS: ANA Titer 2 1:40 titer; Anti Nuclear Antibody Screen POSITIVE (NEGATIVE); Anti Nuclear Antibody Titer 1:40 titer
[2022-08-04 23:17] LABS: Smooth Muscle Antibody <20 U (<20)
== END 2022-07-29 11:32 | disposition home or self-care (01) ==
LOC: HO.LAB 11:31
PROVIDERS: PCP Nurse Practitioner Family; Visit Provider Internal Medicine
DX: K76.0 Fatty (change of) liver, not elsewhere classified (principal); R14.0 Abdominal distension (gaseous); R16.0 Hepatomegaly, not elsewhere classified; R79.89 Other specified abnormal findings of blood chemistry
CPT/HCPCS: 36415; 80076; 81596; 82103; 82390; 82728; 83540; 84443; 85025; 85610; 86015; 86038; 86039; 86255; 86256; 86704; 86706; 86708; 86803; 87340

== ENCOUNTER 2022-08-09 09:36 | Outpatient (REF) | payer MEDICAID, SELFPAY ==
[2022-08-09 10:39] LABS: Alanine Aminotransferase 38 U/L (0-31); Albumin Level 4.2 g/dL (3.5-5.0); Alkaline Phosphatase 153 U/L (39-117); Aspartate Amino Transferase 36 U/L (5-31); Bilirubin Direct 0.3 mg/dL (0.0-0.5); Bilirubin Total 0.5 mg/dL (0.0-1.0); Total Protein 6.9 g/dL (6.5-8.0)
[2022-08-09 10:49] LABS: HBS Num1 8.01 mIU/mL (0-7.99); HBc Num1 0.07 S/CO (0.00-0.79); HBsAGNum1 1.26 S/CO (0.00-0.99); HIV AB/AG Nonreactive (Nonreactive); HIV Num 1 0.08 S/CO (0.00-0.99); Hepatitis B Core Antibody Nonreactive (Nonreactive)
[2022-08-09 13:13] LABS: HBS Num2 6.15 mIU/mL (0-7.99); HBS Num3 6.08 mIU/mL (0-7.99); HBsAGNum2 1.38; HBsAGNum3 1.4; ~Hepatitis B Surface Antibody NONREACTIVE (Nonreactive)
[2022-08-10 13:06] LABS: Neutral % 500 0; R2 SCO 500 0.26 S/CO
[2022-08-10 13:07] LABS: Hepatitis B Surface Antigen Rep Reactive (Negative)
[2022-08-11 11:06] LABS: Alpha Fetoprotein 3.4 ng/mL
[2022-08-11 22:42] LABS: Hepatitis BE Antibody NON-REACTIVE (NON-REACTIVE); Hepatitis BE Antigen NON-REACTIVE (NON-REACTIVE)
[2022-08-12 23:37] LABS: Hepatitis B Viral DNA QN Log <1.00 NOT DETECTED Log IU/mL; Hepatitis B Viral DNA Qn-IU/mL <10 NOT DETECTED IU/mL
[2022-08-18 19:23] LABS: Hepatitis Delta Antibody NEGATIVE
== END 2022-08-09 09:37 | disposition home or self-care (01) ==
LOC: HO.LAB 09:36
PROVIDERS: Internal Medicine; PCP Nurse Practitioner Family; Visit Provider Internal Medicine
DX: B19.10 Unspecified viral hepatitis B without hepatic coma (principal); R79.89 Other specified abnormal findings of blood chemistry
CPT/HCPCS: 36415; 80076; 82105; 86692; 86704; 86706; 86707; 87340; 87350; 87389; 87912

== ENCOUNTER 2023-01-19 08:14 | Outpatient (REF) | payer MEDICAID, SELFPAY ==
--- NOTE | ~2023-01-19 | US_ITS ---
EXAMINATION: US ABDOMEN COMPLETE CLINICAL INFORMATION: Elevated LFTs, hepatomegaly. COMPARISON: Ultrasound abdomen limited 10/22/2021. CT abdomen and pelvis without contrast 10/22/2021. TECHNIQUE: Real-time imaging of the abdominal viscera. FINDINGS: PANCREAS: Normal. ABDOMINAL AORTA: The proximal, mid, and distal segments are normal in caliber. INFERIOR VENA CAVA: Visualized portions are normal. LIVER: The liver is enlarged measuring 19 cm. The liver contour is normal. There is diffuse increased liver parenchymal echogenicity, consistent with hepatic steatosis. There is a 2.2 cm simple cyst in the right hepatic lobe. No imaging follow-up is recommended. There is no intrahepatic biliary duct dilatation seen. GALLBLADDER: Surgically absent. COMMON BILE DUCT: Normal in caliber measuring 0.7 cm in diameter. RIGHT KIDNEY: There is a 2.1 cm Bosniak 2 cyst with layering milk of calcium in the upper pole. No imaging follow-up is recommended. No hydronephrosis. The kidney measures 10.2 cm in maximum dimension. LEFT KIDNEY: There is a 5 mm nonobstructing calculus in the upper pole. No hydronephrosis or focal parenchymal lesions. The kidney measures 12.2 cm in maximum dimension. SPLEEN: Enlarged. The spleen measures 13.7 cm in maximum dimension. FREE FLUID: None. US/US abdomen complete IMPRESSION: Enlarged liver fatty infiltration. Enlarged spleen.
== END 2023-01-19 08:15 | disposition home or self-care (01) ==
LOC: HO.HMGCX 08:14
PROVIDERS: PCP Nurse Practitioner Family; Visit Provider Internal Medicine
DX: R16.0 Hepatomegaly, not elsewhere classified (principal); R79.89 Other specified abnormal findings of blood chemistry; K76.0 Fatty (change of) liver, not elsewhere classified
CPT/HCPCS: 76700

== ENCOUNTER 2023-02-15 14:30 | Emergency (ER) | payer OTHER, SELFPAY ==
--- NOTE | ~2023-02-15 | XR_ITS ---
EXAMINATION: XR WRIST, RIGHT XR HAND, RIGHT CLINICAL INFORMATION: Wrist injury COMPARISON: None available. TECHNIQUE: PA, lateral, and oblique views of the right wrist and hand with a scaphoid view of the right wrist. FINDINGS: No fracture. Alignment is anatomic. Small marginal osteophytes along the interphalangeal joint of the thumb, metacarpal phalangeal joint and first CMC joint. Joint spaces are maintained. No erosions or soft tissue calcifications. XR/XR hand wrist RT IMPRESSION: * No acute findings. * Mild degenerative changes as described.
[2023-02-15 14:56] VITALS: BP 146/93; PULSE 70; RESP 20; TEMP 36.4; O2SAT 98; BMI 35.3
--- NOTE | 2023-02-15 14:56 | ED_ITS ---
HPI - Extremity Injury (Upper) General Chief Complaint: Extremity Injury, Upper <JEAN-PIERRE Cardona - Last Filed: 02/15/23 15:00> Stated Complaint: R arm inj <JEAN-PIERRE Cardona - Last Filed: 02/15/23 15:00> Time Seen by Provider: 02/15/23 15:10 <JEAN-PIERRE Cardona - Last Filed: 02/15/23 15:00> Source: patient <Janis Chopra NP - Last Filed: 02/15/23 17:08> Mode of arrival: ambulatory <Janis Chopra NP - Last Filed: 02/15/23 17:08> Limitations: no limitations <SAY Rodrigues Last Filed: 02/15/23 17:08> History of Present Illness HPI narrative: 42-year-old female OUD on methadone, asthma [id number] here with complaints of pain to the right hand and 5th finger which occurred after she hit her hand on the wall. Patient reports she had a bag of bagels in her hand and she went to hit her partner with them as they were playing around but she missed hitting her hand against the wall. Since then she has pain and swelling to the right hand and right 5th digit. She denies any numbness, tingling or weakness of the extremity <Janis Chopra NP - Last Filed: 02/15/23 17:08> Related Data Allergies/Adverse Reactions: Allergies Allergy/AdvReac Type Severity Reaction Status Date / Time trazodone [TRAZODONE] Allergy Unknown ANXIETY Verified 10/28/20 20:53 diazepam [From VALIUM] AdvReac Intermediate TREMORS Verified 10/28/20 20:53 hydrocodone [HYDROCODONE] AdvReac Intermediate NAUSEA & Verified 10/28/20 20:53 VOMITING From ULTRAM Allergy Unknown AGITATION Uncoded 07/10/20 17:10 <JEAN-PIERRE Cardona - Last Filed: 02/15/23 15:00> Review of Systems Review of Systems: Yes all other systems are reviewed and are negative <SAY Rodrigues Last Filed: 02/15/23 17:08> Constitutional: Constitutional: Reports no additional constitutional complaints, Denies body ache(s), Denies chills, Denies fever(s), Denies headache(s) and Denies weakness <Janis Chopra RETORT LOAD EXPEDITER - Last Filed: 02/15/23 17:08> Eyes: Eyes: Reports no additional eye complaints and Denies change in vision <Janis Chopra [employer] LO[employer] EXPEDITER - Last Filed: 02/15/23 17:08> ENT: Reports system reviewed and no additional complaints, except as documented, Denies dizziness, Denies headache(s), Denies nasal congestion, Denies nasal discharge and Denies neck pain <Jains Chopra [employer] LO[employer] EXPEDITER - Last Filed: 02/15/23 17:08> Cardiovascular: Cardiovascular: Reports no additional cardiovascular complaints, Denies chest pain, Denies leg edema and Denies dyspnea <Janis Chopra [employer] LO[employer] EXPEDITER - Last Filed: 02/15/23 17:08> Respiratory: Respiratory: Reports no additional respiratory complaints, Denies cough and Denies dyspnea <Janis Chopra [employer] LO[employer] EXPEDITER - Last Filed: 02/15/23 17:08> Gastrointestinal: Gastrointestinal: Reports no additional gastrointestinal complaints, Denies abdominal pain, Denies diarrhea, Denies nausea and Denies vomiting <Janis Chopra [employer] LO[employer] EXPEDITER - Last Filed: 02/15/23 17:08> Genitourinary: Genitourinary: Reports no additional female genitourinary complaints and Denies urinary incontinence <Janis Chopra [employer] LO[employer] EXPEDITER - Last Filed: 02/15/23 17:08> Musculoskeletal: Musculoskeletal: Reports no additional musculoskeletal complaints, Denies back pain, Reports arthralgias, Reports joint swelling, Reports limited range of motion, Denies neck pain, Denies numbness and Denies tingling <Janis Chopra [employer] LO[employer] EXPEDITER - Last Filed: 02/15/23 17:08> Integumentary/Breasts: Skin/Breast: Reports system reviewed and no additional complaints, except as docu and Denies rash <Janis Chopra [employer] LO[employer] EXPEDITER - Last Filed: 02/15/23 17:08> Neurologic: Reports system reviewed and no additional complaints, except as documented, Denies Abnormal speech present, Denies dizziness, Denies headache(s), Denies numbness, Denies tingling and Denies weakness <Janis Chopra NP - Last Filed: 02/15/23 17:08> [facility] Past Medical History Attestation statement: The following information was validated with the patient. <Janis Chopra NP - Last Filed: 02/15/23 17:08> Source: old records reviewed and nursing notes reviewed <Janis Chopra NP - Last Filed: 02/15/23 17:08> Medical History: Medical History Anxiety Bipolar 1 disorder COPD (chronic obstructive pulmonary disease) Interstitial cystitis Opiate addiction PVC (premature ventricular contraction) <JEAN-PIERRE Cardona - Last Filed: 02/15/23 15:00> Social History Social History: Social History Advance Directives: No Advance Directives Information Provided: Yes <JEAN-PIERRE Cardona - Last Filed: 02/15/23 15:00> Physical Exam Vital Signs: Vital Signs: Last Vital Signs Temp 97.6 F 02/15/23 14:56 Pulse 70 02/15/23 14:56 Resp 20 02/15/23 14:56 BP 146/93 H 02/15/23 14:56 Pulse Ox 98 02/15/23 14:56 O2 Del Method Room Air 02/15/23 14:56 BMI result Body Mass Index 35.3 <JEAN-PIERRE Cardona - Last Filed: 02/15/23 15:00> Vital Signs: Last Vital Signs Temp 97.6 F 02/15/23 14:56 Pulse 70 02/15/23 14:56 Resp 20 02/15/23 14:56 BP 146/93 H 02/15/23 14:56 Pulse Ox 98 02/15/23 14:56 O2 Del Method Room Air 02/15/23 14:56 BMI result Body Mass Index 35.3 <Janis Chopra NP - Last Filed: 02/15/23 17:08> Const: General: cooperative, healthy appearing, comfortable and no acute distress <Janis Chopra NP - Last Filed: 02/15/23 17:08> Orientation/consciousness: patient oriented x3 <Janis Chopra [employer] LO[employer] EXPEDITER - Last Filed: 02/15/23 17:08> Limitations: no limitations <Janis Chopra [employer] LO[employer] EXPEDITER - Last Filed: 02/15/23 17:08> HEENT: Head: Yes normal to inspection <Janis Chopra [employer] LO[employer] EXPEDITER - Last Filed: 02/15/23 17:08> Ears: hearing grossly normal bilaterally <Janis Chopra [employer] LO[employer] EXPEDITER - Last Filed: 02/15/23 17:08> General nose exam: Normal external nose present <Janis Chopra [employer] LO[employer] EXPEDITER - Last Filed: 02/15/23 17:08> Face and sinus: Yes normal facial exam <Janis Chopra [employer] LO[employer] EXPEDITER - Last Filed: 02/15/23 17:08> Mouth: Normal oral and palatal mucosa present <Janis Chopra, [employer] LO[employer] EXPEDITER - Last Filed: 02/15/23 17:08> Throat: Yes posterior oropharynx normal <Janis Chopra, [employer] LO[employer] EXPEDITER - Last Filed: 02/15/23 17:08> Eyes: General: appearance normal, both eyes and all related structures <Janis Chopra, [employer] LO[employer] EXPEDITER - Last Filed: 02/15/23 17:08> Pupils: Equal, round and reactive pupils present <Janis Chopra [employer] LO[employer] EXPEDITER - Last Filed: 02/15/23 17:08> Neck: Neck: Yes normal visual inspection <Janis Chopra [employer] LO[employer] EXPEDITER - Last F iled: 02/15/23 17:08> Chest: Chest palpation & inspection: normal inspection of the chest <Janis Chopra [employer] LO[employer] EXPEDITER - Last Filed: 02/15/23 17:08> Resp: Effort & Inspection: normal respiratory effort <Janis Chopra [employer] LO[employer] EXPEDITER - Last Filed: 02/15/23 17:08> Auscultation: clear to auscultation bilaterally <Janis Chopra [employer] LO[employer] EXPEDITER - Last Filed: 02/15/23 17:08> Cardio: Rate: regular rate <Janis Chopra [employer] LO[employer] EXPEDITER - Last Filed: 02/15/23 17:08> Rhythm: regular rhythm <Janis Pascucci, [employer] LO[employer] EXPEDITER - Last Filed: 02/15/23 17:08> Peripheral pulses: Peripheral pulses 2+ throughout <Janis Chopra, RET[employer] LOAD EXPEDITER - Last Filed: 02/15/23 17:08> GI: Inspection: Yes normal to inspection <Janis Chopra, RET[employer] LOAD EXPEDITER - Last Filed: 02/15/23 17:08> Palpation (GI): Soft to palpation and nontender <Janis Braunmoylissy, RETORT LOAD EXPEDITER - Last Filed: 02/15/23 17:08> Auscultation: normal bowel sounds <Janis Chopra, RETORT LOAD EXPEDITER - Last Filed: 02/15/23 17:08> Back/Spine/Pelvis: Thoracic/Lumbar Spine: thoracic and lumbar spine normal to inspection <Janis Braunmoylissy, RETORT LOAD EXPEDITER - Last Filed: 02/15/23 17:08> Skin: General skin exam: no rashes or lesions noted <Janis Braunmoylissy, [employer] LOAD EXPEDITER - Last Filed: 02/15/23 17:08> Neuro: General: patient oriented x3, no focal motor deficits and normal sensation to monofilament <Janis Chopra, RETORT LOAD EXPEDITER - Last Filed: 02/15/23 17:08> Cranial nerves: Yes Equal, round and reactive pupils present <Janis Braunmoylissy, RETORT LOAD EXPEDITER - Last Filed: 02/15/23 17:08> Cognition (Neuro): normal cognition <Janis Braunmoylissy, RETORT LOAD EXPEDITER - Last Filed: 02/15/23 17:08> Speech: No Abnormal speech present <Janis Braunmoylissy, RETORT LOAD EXPEDITER - Last Filed: 02/15/23 17:08> Gait exam (Neuro): Normal gait present <Janis Braunmoylissy, RETORT LOAD EXPEDITER - Last Filed: 02/15/23 17:08> Motor exam (neuro): 5/5 motor strength present throughout <Janis Braunmoylissy, RETORT LOAD EXPEDITER - Last Filed: 02/15/23 17:08> Extrem: Other: There is tenderness on palpation over the right hand over the dorsal aspect of the 4th and 5th meta carpal as well as over the entire 5th digit. Patient has intact range of motion both passively and actively of the wrist, hand and digits. Sensation is intact distally. Normal DP and PT pulses. <Janis Chopra NP - Last Filed: 02/15/23 17:08> General: Yes normal to inspection <Janis Chopra NP - Last Filed: 02/15/23 17:08> Course Course Course Narrative: RME: 42yo female with a past medical history anxiety, bipolar, COPD, PVCs, presenting to ED complaining of R hand/wrist pain and swelling s/p trowing bag of bagels at and hitting hand against wall. +R 5th digit MCP ecchymosis & swelling w/ttp. Limited ROM hand 2/2 pain. NV intact XRs ordered Full HPI, ROS and PE to be performed by primary ED provider. <JEAN-PIERRE Cardona - Last Filed: 02/15/23 15:00> Reevaluation(s) Reevaluation #1: X-ray show no fracture. Likely contusion. Reviewed supportive care at home. Reviewed rice. Reviewed worrisome signs and symptoms of when to return to the emergency room. Comfortable plan for discharge home <Janis Chopra NP - Last Filed: 02/15/23 17:08> Medications Administered Discontinued Medications Generic Name Dose Route Start Last Admin Trade Name Freq PRN Reason Stop Dose Admin Ibuprofen 800 mg 02/15/23 16:27 02/15/23 16:38 Ibuprofen 800 Mg Tablet PO 02/15/23 16:28 800 mg ONCE ONE Administration <JEAN-PIERRE Cardona - Last Filed: 02/15/23 15:00> Medications Administered Discontinued Medications Generic Name Dose Route Start Last Admin Trade Name Freq PRN Reason Stop Dose Admin Ibuprofen 800 mg 02/15/23 16:27 02/15/23 16:38 Ibuprofen 800 Mg Tablet PO 02/15/23 16:28 800 mg ONCE ONE Administration <Janis Chopra NP - Last Filed: 02/15/23 17:08> Medical Decision Making Medical Decision Making MDM Narrative: 42-year-old female [id number] here with right hand and 5th digit pain and swelling after an injury which occurred just prior to arrival. Will check x-ray <Janis Chopra NP - Last Filed: 02/15/23 17:08> Differential Diagnosis Differential Diagnoses: The differential diagnosis associated with the presentation includes <Janis Chopra NP - Last Filed: 02/15/23 17:08> Contusion, fracture, sprain, less likely vascular injury or tendon injury <Janis Chopra NP - Last Filed: 02/15/23 17:08> Independent Interpretation I performed an independent interpretation of an: Plain X-Ray <Janis Chopra NP - Last Filed: 02/15/23 17:08> Interpretation: IN [place] be the x-ray and agree with radiologist's report <Janis chang NP - Last Filed: 02/15/23 17:08> Radiology Impression Discussion of test interpretation with radiology: I have reviewed the radiologist's reading. <Janis Chopra NP - Last Filed: 02/15/23 17:08> Radiologist Impression: FINDINGS: No fracture. Alignment is anatomic. Small marginal osteophytes along the interphalangeal joint of the thumb, metacarpal phalangeal joint and first CMC joint. Joint spaces are maintained. No erosions or soft tissue calcifications.? XR/XR hand wrist RT IMPRESSION: *? No acute findings. *? Mild degenerative changes as described. ? <Janis Chopra NP - Last Filed: 02/15/23 17:08> Discharge Plan Discharge Clinical Impression: Contusion of hand, right <JEAN-PIERRE Cardona - Last Filed: 02/15/23 15:00> Patient Disposition: Home, Self-Care <JEAN-PIERRE Cardona - Last Filed: 02/15/23 15:00> Instructions: Contusion in Adults (ED) <JEAN-PIERRE Cardona - Last Filed: 02/15/23 15:00> Additional Instructions: Take Tylenol or Motrin if able as needed for pain Ice to the area Elevation Rest but gentle stretching <JEAN-PIERRE Cardona - Last Filed: 02/15/23 15:00> Referrals: Margie Concepcion NP [Primary Care Provider] - 1 week <JEAN-PIERRE Cardona - Last Filed: 02/15/23 15:00>
[2023-02-15] MEDS: Ibuprofen 800 MG TABLET PO (16:38)
== END 2023-02-15 17:08 | disposition home or self-care (01) ==
PROVIDERS: Emergency Provider Student in an Organized Health Care Education/Training Program; PCP Nurse Practitioner Family
DX: S60.221A Contusion of right hand, initial encounter (principal); M25.531 Pain in right wrist; Y29.XXXA Contact with blunt object, undetermined intent, initial encounter; Y93.9 Activity, unspecified; Y92.9 Unspecified place or not applicable; Y99.9 Unspecified external cause status; Z79.899 Other long term (current) drug therapy
CPT/HCPCS: 73110; 73130; 99283

== ENCOUNTER 2023-03-09 08:00 | Outpatient (RCR) | payer OTHER, SELFPAY | END 2023-03-22 13:45 | disposition home or self-care (01) | LOC: HO.PTCHIC 08:00 | PROVIDERS: PCP Nurse Practitioner Family; Visit Provider Physical Medicine & Rehabilitation | DX: M54.50 Low back pain, unspecified (principal) | CPT/HCPCS: 97110; 97162; 97530 ==

== ENCOUNTER 2023-09-23 08:45 | Emergency (ER) | payer OTHER, SELFPAY ==
--- NOTE | ~2023-09-23 | CT_ITS ---
EXAMINATION: CT ABDOMEN AND PELVIS WITHOUT CONTRAST CLINICAL INFORMATION: Right upper quadrant pain rule out stones and cholecystitis COMPARISON: 10/22/2021 TECHNIQUE: Multidetector volumetric imaging was performed from the superior aspect of the liver through the pubic symphysis. Sagittal and coronal reformatted images were obtained on the technologist's workstation. This CT examination was performed using dose optimization techniques as appropriate, variously including the following: *Automated exposure control *Adjustment of mA and/or kV according to patient size (this includes techniques or standardized protocols for targeted exams where dose is matched to indication/reason for exam; i.e. extremities or head) *Use of iterative reconstruction technique DLP: 805 mGy-cm FINDINGS: LUNG BASES: The visualized lung bases are unremarkable. LIVER, GALLBLADDER, AND BILIARY TREE: Liver is of low attenuation due to hepatic steatosis, heterogeneous and enlarged. There is more prominent than on the previous examination right lobe low-attenuation lesion visualized on image 23 series 2, measured 1.6 cm. Gallbladder is surgically absent CBD is nondilated PANCREAS: Unremarkable. SPLEEN: Unremarkable. ADRENAL GLANDS: Unremarkable. KIDNEYS AND URETERS: There is nonobstructing calculus in the lower pole of right kidney, measured 0.6 cm most likely a conglomerate of 2 stones BLADDER: Unremarkable. GASTROINTESTINAL TRACT: There is constipation. Appendix is unremarkable. Loops of small bowel are normal. There is no diverticulitis, diverticulosis, colitis. ABDOMINAL WALL: No significant hernia is appreciated. LYMPH NODES: Normal. VASCULAR: Unremarkable. PELVIC VISCERA: Unremarkable. OSSEOUS STRUCTURES: Unremarkable. CT/CT abdomen pelvis wo IV con IMPRESSION: 1. Right nephrolithiasis. 2. Hepatomegaly and hepatic steatosis. Low-attenuation lesion in the right lobe of the liver, correlate with ultrasound. 3. Status post cholecystectomy. 4. Constipation. Fleischner guidelines were followed.
[2023-09-23 08:52] VITALS: BP 180/90; PULSE 88; RESP 20; TEMP 36.9; O2SAT 94; BMI 36.6
--- NOTE | 2023-09-23 09:18 | ED.GENADULT ---
HPI - General Adult General Chief complaint: Abdominal Pain Stated complaint: R side pain/ SOB Time Seen by Provider: 09/23/23 09:11 Source: patient Mode of arrival: ambulatory Limitations: no limitations History of Present Illness HPI narrative: 43 year old female presents w/ concerns of R sided flank pain that radiates to abdomen for the past three days worsening. Patient reports sharp stabbing pain, she reports that she also feels like her abdomen may be slightly more bloated than usual.She reports severe pain 10/10. Reports everything seems to be making the pain worse including breathing, movement. Patient reports nausea however no vomiting. Reports she is having urinary frequency, urgency and darker urine however no burning on urination. Patient does not have a history of kidney stones. Denies chest pain, shortness of breath, vomiting, headache, vision changes, dizziness, weakness. Related Data Previous Rx's Medication Instructions Recorded cefuroxime axetil 250 mg tablet 250 mg PO BID 14 days #28 tabs 09/23/23 ketorolac 10 mg tablet 10 mg PO TID PRN pain 5 days #15 09/23/23 tabs prednisone 20 mg tablet 20 mg PO DAILY 5 days #5 tabs 09/23/23 tamsulosin 0.4 mg capsule (Flomax) 0.4 mg PO DAILY 2 weeks #14 caps 09/23/23 Allergies Allergy/AdvReac Type Severity Reaction Status Date / Time trazodone [TRAZODONE] Allergy Unknown ANXIETY Verified 10/28/20 20:53 diazepam [From VALIUM] AdvReac Intermediate TREMORS Verified 10/28/20 20:53 hydrocodone [HYDROCODONE] AdvReac Intermediate NAUSEA & Verified 10/28/20 20:53 VOMITING From ULTRAM Allergy Unknown AGITATION Uncoded 07/10/20 17:10 Review of Systems Review of Systems: Constitutional : No Weight loss, No Fever, No Chills, No Fatigue, No Malaise ENT/Mouth : No sore throat, No Rhinorrhea Eyes: No Eye Pain, No Swelling, No Redness Cardiovascular : No Chest Pain, No SOB, No Dyspnea on Exertion, No Orthopnea, No Edema, No Palpitations Respiratory : No Cough, No Sputum, No Wheezing Gastrointestinal : No Nausea, No Vomiting, No Diarrhea, No Constipation, No abdominal Pain, No Hematochezia, No Melena Genitourinary : No Dysuria, No Urinary Frequency, No Hematuria, Musculoskeletal : No joint pain, No Myalgias, No Joint Swelling Skin : No Skin Lesions, No rash Neuro : No Weakness, No Numbness, No Dizziness, No Headache Psych : No Anxiety/Panic, No Depression All other systems reviewed and are negative Yes all other systems are reviewed and are negative [facility] Past Medical History Attestation statement: The following information was validated with the patient. Source: old records reviewed Medical History Anxiety Bipolar 1 disorder COPD (chronic obstructive pulmonary disease) Interstitial cystitis Opiate addiction PVC (premature ventricular contraction) Social History Social History Smoked in Last 30 Days: Yes Use of substances other than those prescribed or required for medical reasons: No Advance Directives: Yes Advance Directives Information Provided: Yes Advance Directives on File: No Patient : No Physical Exam ED Vital Signs: Vital Signs - 24 hr 09/23/23 08:52 09/23/23 10:26 Temperature 98.4 F 98.8 F Pulse Rate 88 87 Respiratory Rate 20 18 Blood Pressure 180/90 H 142/87 H Pulse Oximetry 94 95 Oxygen Delivery Method Room Air Room Air BMI result Body Mass Index 36.6 vss Appearance: Alert.? Oriented X3.? No acute distress.? Head: Normocephalic, atraumatic, no step-offs or deformities Eyes: Pupils equal, round and reactive to light.? CVS: Normal heart rate and rhythm.? Pulses normal.? Respiratory: No respiratory distress.? Breath sounds normal.? Abdomen: Soft and nontender.? Skin: Skin warm and dry.? Normal skin color.? Normal skin turgor.? Extremities: No lower extremity edema.? No calf ttp. 5/5 strength to bilateral upper and lower extremities back: + right sided CVA tenderness. Neuro: Oriented X 3.? No motor deficit.? No sensory deficit. CN 2-12 intact Course Reevaluation(s) Reevaluation #1: Patient's CBC with leukocytosis 14.0, no left shift. Chemistry with slightly low sodium likely secondary to poor p.o. intake/dehydration. Patient's glucose 439, no anion gap or electrolyte abnormalities suggesting DKA. Lactic acid normal. Transaminase is chronically elevated. Troponin negative, D-dimer negative, beta hCG negative. Urine with 1+ positive bacteria negative leukocyte esterases and nitrates. CT abdomen and pelvis with nephrolithiasis 0.6 cm nonobstructing calculus in the lower pole of right kidney. Time: 12:12 Reevaluation #2: Patient feeling so much better. I did discuss this case with Urology who is concerned for possible pyelonephritis based off of information given. Will treat patient with Ceftin for 14 days. Will give prednisone, Flomax, Toradol for pain. I did have a long conversation with patient about worrisome signs and symptoms and when to return and she verbalizes understanding. She is followed by bladder specialist. She will follow up with them outpatient. Educated patient on diagnosis and treatment plan, answered all question, patient verbalizes understanding. At this time patient will be discharged home, advised to return with new or worsening symptoms. Educated on worrisome signs and symptoms and when to return. At this time I feel comfortable discharge home. Time: 12:49 Medications Administered Discontinued Medications Generic Name Dose Route Start Last Admin Trade Name Jojo PRN Reason Stop Dose Admin Sodium Chloride 1,000 mls @ 999 mls/hr 09/23/23 12:00 09/23/23 12:10 Ns IV 09/23/23 13:00 999 mls/hr .Q1H1M GABBY Administration Ceftriaxone Sodium 1 gm/ 50 mls @ 100 mls/hr 09/23/23 12:08 09/23/23 12:26 Sodium Chloride IV 09/23/23 12:37 100 mls/hr ONCE ONE Administration Ketorolac Tromethamine 30 mg 09/23/23 12:00 09/23/23 12:10 Ketorolac Tromethamine 15 Mg/Ml Vial IVPUSH 09/23/23 12:01 30 mg ONCE ONE Administration Morphine Sulfate 4 mg 09/23/23 10:51 09/23/23 12:00 Morphine Sulfate 4 Mg/Ml Cartridge IVPUSH 09/23/23 10:52 4 mg ONCE ONE Administration Protocol Prednisone 20 mg 09/23/23 12:00 09/23/23 12:10 Prednisone 20 Mg Tablet PO 09/23/23 12:01 20 mg ONCE ONE Administration Medical Decision Making Medical Decision Making [facility] Narrative: 1206 43-year-old female presents with right-sided flank pain that radiates to abdomen with associated urinary symptoms going on for 3 days. Physical examination with right-sided CVA tenderness Concerned for pyelonephritis versus obstructing uropathy versus kidney stone. Will rule out cystitis, urinary tract infection. Unlikely acute abdomen, appendicitis, pancreatitis, choledocholithiasis, cholecystitis, cholangitis. No signs of obstruction. Will rule out electrolyte abnormalities. Plan labs, imaging, urine Differential Diagnosis Differential Diagnoses: The differential diagnosis associated with the presentation includes Concerned for pyelonephritis versus obstructing uropathy versus kidney stone. Will rule out cystitis, urinary tract infection. Unlikely acute abdomen, appendicitis, pancreatitis, choledocholithiasis, cholecystitis, cholangitis. No signs of obstruction. Will rule out electrolyte abnormalities. Admission/Observation Consideration of admission/observation: Escalation of care including admission/observation considered possible Consult Healthcare Provider Management of the patient was discussed with: [employer] Lab Data MDM Lab Attestation statement: I reviewed the patient's lab results. 09/23/23 09:37 09/23/23 09:38 Labs: Lab Results 09/23/23 09/23/23 09/23/23 Range/Units 09:37 09:38 10:25 WBC 14.0 H (4.8-10.8) X10*3/uL RBC 5.34 (4.20-5.50) X10*6/uL Hgb 15.3 (12.0-16.0) g/dl Hct 45.9 (37.0-47.0) % MCV 86.0 (80.0-98.0) fL MCH 28.7 (27.0-33.0) pg MCHC 33.3 (31.0-35.0) g/dl RDW 13.5 (11.0-16.0) % Plt Count 283 (160-400) X10*3/uL MPV 9.6 (9.4-12.3) fL Immature Gran % (Auto) 0.6 H (0.0-0.4) % Neut % (Auto) 72.9 (45-73) % Lymph % (Auto) 17.7 L (20-40) % [place] % (Auto) 7.2 (2-11) % Eos % (Auto) 1.0 (0-4) % Baso % (Auto) 0.6 (0-2) % Lymph # (Auto) 2.5 (1.2-4.9) X10*3/uL [place] # (Auto) 1.0 (0.1-1.2) X10*3/uL Eos # (Auto) 0.1 (0.0-0.4) X10*3/uL Baso # (Auto) 0.1 (0.0-0.2) X10*3/uL Abs Immat Gran (auto) 0.08 H (0.00-0.03) X10*3/uL Absolute Neuts (auto) 10.2 H (2.0-8.3) x10*3/uL Absolute Nucleated RBC 0.000 (0.0-0.012) X10*3/uL Nucleated RBC % (auto) 0.0 (0.0-0.2) /100WBC D-Dimer High Sensitivty 224 NG/ML Sodium 133 L (135-145) mmol/L Potassium 4.2 (3.3-5.1) mmol/L Chloride 94 L (96-108) mmol/L Carbon Dioxide 30 H (22-29) mmol/L Anion Gap 13 (12-20) BUN 10 (9-16) mg/dL Creatinine 0.75 (0.5-1.4) mg/dL Estim Creat Clear Calc 111.9 Estimated GFR > 60 Random Glucose 439 H* (60-115) mg/dL Lactic Acid 1.3 (0.5-2.0) mmol/L Calcium 9.6 (8.4-10.2) mg/dL Magnesium 1.7 (1.6-2.6) mg/dL Total Bilirubin 1.0 (0.0-1.0) mg/dL AST 20 (5-31) U/L ALT 32 H (0-31) U/L Alkaline Phosphatase 189 H (39-117) U/L Troponin I High Sens < 2.7 (<3.5-17.0) ng/L Total Protein 7.7 (6.5-8.0) g/dL Albumin 4.0 (3.5-5.0) g/dL Lipase 44 (8-78) U/L Beta HCG, Quant < 2 mIU/mL Urine Color Dark Yellow Urine Appearance Clear Urine pH 6.5 (5.0-9.0) Ur Specific [place] >= 1.030 H (1.005-1.025) Urine Protein Trace (Neg-Trace) mg/dL Urine Glucose (UA) >=1000 H (Negative) mg/dL Urine Ketones Negative (Negative) mg/dL Urine Blood Negative (Negative) Urine Nitrite Negative (Negative) Ur Leukocyte Esterase Negative (Negative) Urine RBC 0-2 (0-2) /HPF Urine WBC 0-5 (0-5) /HPF Ur Squamous Epith Cells 3-5 (0-2) /HPF Urine Bacteria 1+ (None Seen) Hyaline Casts 0-2 (0-2) /LPF Independent Interpretation I performed an independent interpretation of an: CT Scan Radiology Impression Discussion of test interpretation with radiology: I have reviewed the radiologist's reading. (FINDINGS: LUNG BASES: The visualized lung bases are unremarkable. LIVER, GALLBLADDER, AND BILIARY TREE: Liver is of low attenuation due to hepatic steatosis, heterogeneous and enlarged. There is more prominent than on the previous examination right lobe low-attenuation lesion visualized on image ) External Record Review External record reviewed: Inpatient record, Office record, Outpatient record, Prior outpatient labs, Prior outpatient radiology, Primary care record and Outside ED record Prescription Management I considered prescription management with: Pain Medication Critical Care Time Critical Care Time Critical Care Time: Yes Total Critical Care Time: 35 Attestation: I attest to this time spent taking care of the patient, obtaining history, physical, reviewing labs, imaging, speaking to my attending, speaking to specialist. Discharge Plan Discharge Clinical Impression: Pyelonephritis, Calculus of kidney, Abdominal pain, Constipation, Nausea Patient Disposition: Home, Self-Care Instructions: Kidney Stones (ED), Kidney Infection (ED), Abdominal Pain (ED) Additional Instructions: Take your medications as prescribed. If you were prescribed antibiotics today, it is important that you take your medication to their entirety, do not skip any doses, do not finish them early. Follow-up with your primary care provider this week. Follow up with urology as soon as possible Return to the emergency department with new or worsening symptoms. Such as fevers, chills, chest pain, shortness of breath, nausea, vomiting, dizziness, headache, vision changes, lethargy In case of emergency call 911 Any new or worsening symptoms come back! Fevers, chills, changes in urinary habits, nausea, vomiting, abd pain Toradol has been sent to your pharmacy, you tolerated this well in the department. Please take this as prescribed do not take this with ibuprofen, or other NSAIDs, do not mix this with alcohol. Side effects of this medication including increased risk for bleeding and possible kidney injury. FINDINGS: LUNG BASES: The visualized lung bases are unremarkable. LIVER, GALLBLADDER, AND BILIARY TREE: Liver is of low attenuation due to hepatic steatosis, heterogeneous and enlarged. There is more prominent than on the previous examination right lobe low-attenuation lesion visualized on image 23 series 2, measured 1.6 cm. Gallbladder is surgically absent CBD is nondilated PANCREAS: Unremarkable. SPLEEN: Unremarkable. ADRENAL GLANDS: Unremarkable. KIDNEYS AND URETERS: There is nonobstructing calculus in the lower pole of right kidney, measured 0.6 cm most likely a conglomerate of 2 stones BLADDER: Unremarkable. GASTROINTESTINAL TRACT: There is constipation. Appendix is unremarkable. Loops of small bowel are normal. There is no diverticulitis, diverticulosis, colitis. ABDOMINAL WALL: No significant hernia is appreciated. LYMPH NODES: Normal. VASCULAR: Unremarkable. PELVIC VISCERA: Unremarkable. OSSEOUS STRUCTURES: Unremarkable. CT/CT abdomen pelvis wo IV con IMPRESSION: 1. Right nephrolithiasis. 2. Hepatomegaly and hepatic steatosis. Low-attenuation lesion in the right lobe of the liver, correlate with ultrasound. 3. Status post cholecystectomy. 4. Constipation. Prescriptions: New cefuroxime axetil 250 mg tablet 250 mg PO BID 14 Days Qty: 28 0RF prednisone 20 mg tablet 20 mg PO DAILY 5 Days Qty: 5 0RF ketorolac 10 mg tablet 10 mg PO TID PRN (Reason: pain) 5 Days Qty: 15 0RF tamsulosin [Flomax] 0.4 mg capsule 0.4 mg PO DAILY 14 Days Qty: 14 0RF Referrals: [facility] [place] [facility] [Provider Group] - 2 days Margie Concepcion NP [Primary Care Provider] - 2 days Stand Alone Forms: Work/School Release
--- NOTE | 2023-09-23 09:28 | ECG_ITS ---
Test Reason : FLANK /SHOULDER Blood Pressure : / mmHG Vent. Rate : 086 BPM Atrial Rate : 086 BPM P-R Int : 186 ms QRS Dur : 074 ms QT Int : 310 ms P-R-T Axes : 032 -10 020 degrees QTc Int : 370 ms Poor data quality Normal sinus rhythm Possible Left atrial enlargement Anteroseptal infarct (cited on or before 28-OCT-2020) Abnormal ECG When compared with ECG of 28-OCT-2020 21:00, QT has shortened Referred By: Jovi Garrett Electronically Signed By:DIANA LUZ MD
[2023-09-23 09:43] LABS: MANUAL DIFF FLAG NO
[2023-09-23 09:44] LABS: Basophils Absolute Auto 0.1 X10*3/uL (0.0-0.2); Basophils Percent Auto 0.6 % (0-2); Eosinophils Absolute Auto 0.1 X10*3/uL (0.0-0.4); Hematocrit 45.9 % (37.0-47.0); Hemoglobin 15.3 g/dl (12.0-16.0); Imm Gran Abs Auto 0.08 X10*3/uL (0.00-0.03); Imm Gran Pct Auto 0.6 % (0.0-0.4); Lymphocytes Absolute Auto 2.5 X10*3/uL (1.2-4.9); Lymphocytes Percent Auto 17.7 % (20-40); Mean Corpuscular HGB Conc 33.3 g/dl (31.0-35.0); Mean Corpuscular Hemoglobin 28.7 pg (27.0-33.0); Mean Platelet Volume 9.6 fL (9.4-12.3); Monocytes Percent Auto 7.2 % (2-11); Neutrophils Absolute Auto 10.2 x10*3/uL (2.0-8.3); Neutrophils Percent Auto 72.9 % (45-73); Platelet Count 283 X10*3/uL (160-400); Red Blood Count 5.34 X10*6/uL (4.20-5.50); Red Cell Distribution Width 13.5 % (11.0-16.0)
[2023-09-23 09:45] LABS: Appearance Urine Clear; Color Urine Dark Yellow; Glucose Urine UA >=1000 mg/dL (Negative); Leukocyte Esterase Urine Negative (Negative); Nitrite Urine Negative (Negative); PH 6.5 (5.0-9.0); Specific Gravity - Urine >= 1.030 (1.005-1.025); UMIC TRIGGER UACC YES; Urine Blood Negative (Negative); Urine Ketones Negative (Negative); Urine Protein Trace mg/dL (Neg-Trace)
[2023-09-23 09:53] LABS: D Dimer High Sensitivity 224 NG/ML
[2023-09-23 09:56] LABS: Bacteria Urine 1+ (None Seen); Hyaline Casts Urine 0-2 /LPF (0-2); RBC Urine 0-2 /HPF (0-2); WBC Urine 0-5 /HPF (0-5)
--- NOTE | 2023-09-23 09:56 | PC.NURSE ---
PT IS A/O X 3 NO SOB/PAU NOTED SPEAKS IN FULL SENTENCES. HX R HUMERUS FX ON 08/05 WITH R IMMOBILIZING SLING. HEPLOCK # 22, L AC. PT IS REQUESTING MED FOR DIARRHEA STATED THAT STOMACH FEELS LIKE IT IS BUBBLING . PT AWARE OF PLAN OF CARE.
[2023-09-23 10:12] LABS: Troponin-I High Sensitivity < 2.7 ng/L (<3.5-17.0)
[2023-09-23 10:14] LABS: Alanine Aminotransferase 32 U/L (0-31); Alkaline Phosphatase 189 U/L (39-117); Anion Gap 13 (12-20); Aspartate Amino Transferase 20 U/L (5-31); Blood Urea Nitrogen 10 mg/dL (9-16); Calcium 9.6 mg/dL (8.4-10.2); Carbon Dioxide 30 mmol/L (22-29); Chloride 94 mmol/L (96-108); Creatinine Clr Calc Pharmacy 111.9; Estimated Glomerular Filt Rate > 60; Glucose Random 439 mg/dL (60-115); HCG Quantitative < 2 mIU/mL; Lipase 44 U/L (8-78); Magnesium 1.7 mg/dL (1.6-2.6); Potassium 4.2 mmol/L (3.3-5.1); Sodium 133 mmol/L (135-145); Total Protein 7.7 g/dL (6.5-8.0)
[2023-09-23 10:26] VITALS: BP 142/87; PULSE 87; RESP 18; TEMP 37.1; O2SAT 95
[2023-09-23 10:46] LABS: Lactic Acid 1.3 mmol/L (0.5-2.0)
[2023-09-23] MEDS: Morphine Sulfate 4 MG/ML CARTRIDGE IVPUSH (12:00)
[2023-09-23] MEDS: predniSONE 20 MG TABLET PO (12:10)
[2023-09-23] MEDS: Ketorolac Tromethamine 15 MG/ML VIAL 30 MG IVPUSH (12:10)
[2023-09-23] MEDS: 0.9 % Sodium Chloride 1,000 ML 999 ML IV (12:10)
[2023-09-23] MEDS: cefTRIAXone sodium 1 GM in 0.9 % Sodium Chloride 50 ML IV (12:26)
[2023-09-23 13:04] VITALS: BP 125/74; PULSE 83; RESP 16; TEMP 36.7; O2SAT 93
[2023-09-23 13:52] LABS: Glucose, Whole Blood 332 mg/dL (60-115)
== END 2023-09-23 13:52 | disposition home or self-care (01) ==
PROVIDERS: Physician Assistant; Emergency Provider Emergency Medicine Emergency Medical Services; PCP Nurse Practitioner Family
DX: N12 Tubulo-interstitial nephritis, not specified as acute or chronic (principal); R10.9 Unspecified abdominal pain; R06.02 Shortness of breath; N20.0 Calculus of kidney; K59.00 Constipation, unspecified; R11.2 Nausea with vomiting, unspecified; R94.31 Abnormal electrocardiogram [ECG] [EKG]; Z79.899 Other long term (current) drug therapy
CPT/HCPCS: 36415; 74176; 80053; 81001; 82947; 83605; 83690; 83735; 84484; 84702; 85025; 85379; 87040; 93005; 96374; 96375; 99284; 99285; J0696; J1885; J2270

== ENCOUNTER → 2023-09-23 09:28 | Outpatient (BNV) | payer OTHER, SELFPAY | PROVIDERS: Emergency Provider Emergency Medicine Emergency Medical Services; PCP Nurse Practitioner Family; Visit Provider Internal Medicine Cardiovascular Disease | DX: R94.31 Abnormal electrocardiogram [ECG] [EKG] (principal) | CPT/HCPCS: 93010 ==

== ENCOUNTER 2024-06-23 09:42 | Emergency (ER) | payer OTHER, SELFPAY ==
--- NOTE | ~2024-06-23 | US_ITS ---
EXAMINATION: US PELVIS COMPLETE CLINICAL INFORMATION: pelvic pain, hx pcos COMPARISON: CT abdomen pelvis 09/23/2023 TECHNIQUE: Transabdominal and transvaginal imaging was performed. FINDINGS: The uterus is retroverted in position measuring 7.3 x 4.5 x 4.8 cm. A regular homogeneous endometrium is identified measuring 0.8 cm. Uterus is possibly arcuate morphology. Nabothian cysts in the cervix. Multiple uterine myomas including a 1 cm intramural myoma in the lower uterine segment, a 2.3 cm transmural myoma in the fundus of the uterus with a probable submucosal component, a 1.4 cm intramural myoma in the anterior body of the uterus and a 1.4 cm intramural myoma in the posterior body of the uterus. The right ovary measures 3.1 x 2.4 x 2.0 cm for a volume of 10.1 mL, with an adjacent punctate calcification, otherwise unremarkable. The left measures 4.9 x 3.0 x 3.9 cm for a volume of 29.7 mL and is remarkable for physiologic follicles measuring up to 2.8 cm. There is no pelvic free fluid. US/US pelvic and transvaginal IMPRESSION: 1. No acute findings to explain symptoms of pelvic pain. 2. Multiple uterine myomas including a 2.3 cm transmural myoma in the fundus with a probable submucosal component. 3. Uterus is possibly arcuate morphology. Electronically signed by: Tiffanie Bowden MD 06/23/2024 01:18 PM EDT
--- NOTE | ~2024-06-23 | XR_ITS ---
EXAMINATION: XR ABDOMEN COMPLETE CLINICAL INDICATION: lower abd pain, hx constipation COMPARISON: CT abdomen pelvis 09/23/2023 TECHNIQUE: AP view of the abdomen. FINDINGS: Lines or devices: Surgical clip in the pelvis. Right upper quadrant cholecystectomy clips. Nonobstructive bowel gas pattern. Large colonic stool burden predominantly in the ascending and transverse colon. Supine technique limits evaluation for extraluminal air although no secondary findings are appreciated. Tiny calcification in the left hemipelvis possibly reflecting calcified phlebolith though a distal ureteral stone could appear similar in the appropriate clinical setting and if any clinical concern CT stone protocol could be obtained. Lzqz-or-wdfgtoqy osteoarthritis of the hips with loss of superolateral joint space. XR/XR KUB IMPRESSION: 1. Nonobstructive bowel gas pattern. Large colonic stool burden predominantly in the ascending and transverse colon. 2. Tiny calcification in the left hemipelvis possibly reflecting calcified phlebolith though a distal ureteral stone could appear similar in the appropriate clinical setting and if any clinical concern CT stone protocol could be obtained. 3. Wizf-qm-kudaqbnt osteoarthritis of the hips with loss of superolateral joint space. Electronically signed by: Tiffanie Bowden MD 06/23/2024 02:00 PM EDT
[2024-06-23 09:45] VITALS: BP 155/81; BP 158/82; PULSE 62; PULSE 75; RESP 16; TEMP 36.7; O2SAT 98; O2SAT 99; BMI 33.3
--- NOTE | 2024-06-23 09:51 | ED.GENADULT ---
HPI - General Adult General Chief complaint: Abdominal Pain Stated complaint: ABD PAIN NAUSEA Source: patient and EMS Mode of arrival: EMS Limitations: no limitations History of Present Illness ED Provider: raj HPI narrative: Patient is a 43-year-old female with history of PCOS, COPD, DM, cholecystectomy, interstitial cystitis, Bipolar disorder, anxiety, currently on methadone presenting to the emergency department with complaint of an approximately 20 minute episode of severe lower abdominal/pelvic pain prior to arrival. States she felt normal this morning, when out to her car to get some breakfast and developed lower abdominal cramping which progressed to severe lower abdominal pain which she rates at 10/10. States the pain lasted around 20 minutes and then as quickly as it began at resolved. Reports that since she has started on medication for her diabetes in July of 2023, she has begun having more normal periods. States that for many years prior to that she did not have periods due to her PCOS. Feel she is due for her menstrual period in around 1 week. Denies any current vaginal bleeding or other abnormal vaginal discharge. Denies recent unprotected intercourse or concern for STIs. Reports nausea associated with the pain, denies vomiting. History of chronic constipation and reports that her bowel movements are small and hard at baseline. Describes the pain as suprapubic radiating into perineal area. MD complaint: pelvic pain Onset (ago): minute(s) Location: pelvis Radiation: non-radiation Severity: severe Quality: sharp Pain Consistency: now resolved Exacerbating factors: movement Associated symptoms: nausea/vomiting Treatments prior to arrival: none Related Data Previous Rx's ?Medication ?Instructions ?Recorded cefuroxime axetil 250 mg tablet 250 mg PO BID 14 days #28 tabs 09/23/23 ketorolac 10 mg tablet 10 mg PO TID PRN pain 5 days #15 09/23/23 tabs prednisone 20 mg tablet 20 mg PO DAILY 5 days #5 tabs 09/23/23 tamsulosin 0.4 mg capsule (Flomax) 0.4 mg PO DAILY 2 weeks #14 caps 09/23/23 Allergies Allergy/AdvReac Type Severity Reaction Status Date / Time trazodone [TRAZODONE] Allergy Unknown ANXIETY Verified 06/23/24 09:47 diazepam [From VALIUM] AdvReac Intermediate TREMORS Verified 06/23/24 09:47 hydrocodone [HYDROCODONE] AdvReac Intermediate NAUSEA & Verified 06/23/24 09:47 VOMITING From ULTRAM Allergy Unknown AGITATION Uncoded 06/23/24 09:47 Review of Systems Review of Systems: As per HPI. Yes all other systems are reviewed and are negative Constitutional: Constitutional: Reports as per HPI [facility] Past Medical History Medical History Anxiety Bipolar 1 disorder COPD (chronic obstructive pulmonary disease) Interstitial cystitis Opiate addiction PVC (premature ventricular contraction) Social History Social History Smoked in Last 30 Days: No Use of substances other than those prescribed or required for medical reasons: No Advance Directives: No Advance Directives Information Provided: No Do you have a plan to hurt others: No Plan Patient : No Physical Exam ED Vital Signs: Vital Signs - 24 hr 06/23/24 09:45 06/23/24 13:07 Temperature 98.0 F 98.0 F Pulse Rate 62 66 Respiratory Rate 16 16 Blood Pressure 155/81 H 141/91 H Pulse Oximetry 99 98 Oxygen Delivery Method Room Air Room Air BMI result Body Mass Index 33.3 Vital signs have been reviewed and appear to be correct. Blood pressure elevated. Heart rate normal. Respiratory rate normal. Temperature normal. Oxygen saturation normal. Const General: cooperative, healthy appearing and no acute distress Orientation/consciousness: oriented to person, oriented to place, oriented to time and patient oriented x3 Limitations: no limitations HENMT Head: Yes normocephalic and Yes atraumatic Ears: external ears normal General nose exam: Normal external nose present Face and sinus: Yes face symmetric Mouth: oropharynx normal and moist mucous membranes Throat: Yes uvula midline Eyes Pupils: Equal, round and reactive pupils present Neck Neck: Yes normal visual inspection and Yes supple Resp Effort & Inspection: normal respiratory effort and able to speak in complete sentences Auscultation: clear to auscultation bilaterally Cardio Rate: regular rate Rhythm: regular rhythm Heart sounds: S1 normal heart sound present and S2 normal heart sound present GI Palpation (GI): Soft to palpation and nontender Auscultation: normoactive bowel sounds General: Yes no CVA tenderness Back/Spine/Pelvis Back: no CVA tenderness Skin General skin exam: elasticity normal and turgor normal Neuro General: oriented to person, oriented to place, oriented to time, patient oriented x3, moves all extremities, no focal motor deficits and CN's II-XI intact bilaterally Cranial nerves: Yes Equal, round and reactive pupils present Cognition (Neuro): normal cognition Extrem General: Yes full ROM, Yes no pedal edema and Yes no calf tenderness Psych Mental Status: mental status grossly normal Affect: normal affect Thought process: Normal thought process present Medical Decision Making Medical Decision Making [facility] Narrative: Patient is a 43-year-old female with history of PCOS, COPD, DM, cholecystectomy, interstitial cystitis, Bipolar disorder, anxiety, currently on methadone presenting to the emergency department with complaint of an approximately 20 minute episode of severe lower abdominal/pelvic pain prior to arrival. On exam patient is awake, A+Ox3, BP elevated, VS otherwise WNL, afebrile, normal neurological exam without focal deficits, physical exam findings as above. Given reported symptoms and physical exam findings, initial differential includes ruptured ovarian cyst, ovarian torsion, UTI, constipation/gas, menstrual cramps. Labs notable for no leukocytosis, no anemia, no significant electrolyte abnormalities. X-ray abdomen notable for no evidence of bowel obstruction, large colonic stool burden. Ultrasound notable for uterine myomas. My interpretation is in agreement with the radiologist's interpretation. Low suspicion for ureteral calculi, urinalysis is without blood, 1+ leukocytes. Do not suspect UTI. Results discussed with patient and all questions answered. Patient reports using Colace as well as enemas and fiber supplements at home for constipation. Discussed with patient that she should ensure adequate fluid intake and can also use magnesium citrate [id number] as needed. Follow-up with PCP. Return precautions discussed at bedside. Patient verbalized understanding of and agreement with plan. Differential Diagnosis Differential Diagnoses: The differential diagnosis associated with the presentation includes As per [facility]. Admission/Observation Consideration of admission/observation: Escalation of care including admission/observation considered Patient would have been admitted to the hospital had their work up had any findings where hospital admission was appropriate and their clinical presentation warranted hospital admission. Lab Data [facility] Lab Attestation statement: I reviewed the patient's lab results. As per [facility] 06/23/24 10:29 06/23/24 10:29 Labs: Lab Results 06/23/24 06/23/24 Range/Units 09:54 10:29 WBC 9.2 (4.8-10.8) X10*3/uL RBC 5.26 (4.20-5.50) X10*6/uL Hgb 15.4 (12.0-16.0) g/dl Hct 46.7 (37.0-47.0) % MCV 88.8 (80.0-98.0) fL MCH 29.3 (27.0-33.0) pg MCHC 33.0 (31.0-35.0) g/dl RDW 13.4 (11.0-16.0) % Plt Count 289 (160-400) X10*3/uL MPV 9.6 (9.4-12.3) fL Immature Gran % (Auto) 0.4 (0.0-0.4) % Neut % (Auto) 69.6 (45-73) % Lymph % (Auto) 21.7 (20-40) % [place] % (Auto) 5.5 (2-11) % Eos % (Auto) 2.0 (0-4) % Baso % (Auto) 0.8 (0-2) % Lymph # (Auto) 2.0 (1.2-4.9) X10*3/uL [place] # (Auto) 0.5 (0.1-1.2) X10*3/uL Eos # (Auto) 0.2 (0.0-0.4) X10*3/uL Baso # (Auto) 0.1 (0.0-0.2) X10*3/uL Abs Immat Gran (auto) 0.04 H (0.00-0.03) X10*3/uL Absolute Neuts (auto) 6.4 (2.0-8.3) x10*3/uL Absolute Nucleated RBC 0.000 (0.0-0.012) X10*3/uL Nucleated RBC % (auto) 0.0 (0.0-0.2) /100WBC Sodium 139 (135-145) mmol/L Potassium 4.0 (3.3-5.1) mmol/L Chloride 103 (96-108) mmol/L Carbon Dioxide 27 (22-29) mmol/L Anion Gap 13 (12-20) BUN 6 L (9-16) mg/dL Creatinine 0.77 (0.5-1.4) mg/dL Estim Creat Clear Calc 103.7 Estimated GFR > 60 Random Glucose 139 H (60-115) mg/dL Calcium 9.3 (8.4-10.2) mg/dL Total Bilirubin 0.6 (0.0-1.0) mg/dL AST 20 (5-31) U/L ALT 21 (0-31) U/L Alkaline Phosphatase 118 H (39-117) U/L Troponin I High Sens Cancelled Total Protein 7.0 (6.5-8.0) g/dL Albumin 3.9 (3.5-5.0) g/dL Lipase 32 (8-78) U/L Beta HCG, Quant Cancelled < 2 Urine Color Dark Yellow Urine Appearance Clear Urine pH 6.0 (5.0-9.0) Ur Specific [place] 1.020 (1.005-1.025) Urine Protein Negative (Neg-Trace) mg/dL Urine Glucose (UA) Negative (Negative) mg/dL Urine Ketones Trace (Negative) mg/dL Urine Blood Negative (Negative) Urine Nitrite Negative (Negative) Ur Leukocyte Esterase Small (1+) H (Negative) Urine RBC 0-2 (0-2) /HPF Urine WBC 11-20 H (0-5) /HPF Ur Squamous Epith Cells 6-10 (0-2) /HPF Urine Bacteria None Seen (None Seen) Hyaline Casts 0-2 (0-2) /LPF Independent Interpretation I performed an independent interpretation of an: Ultrasound Interpretation: Ultrasound notable for uterine myomas. X-ray abdomen notable for no evidence of bowel obstruction, large colonic stool burden. Radiology Impression Discussion of test interpretation with radiology: I have reviewed the radiologist's reading. Radiologist Impression: XR/XR KUB IMPRESSION: 1. Nonobstructive bowel gas pattern. Large colonic stool burden predominantly in the ascending and transverse colon. 2. Tiny calcification in the left hemipelvis possibly reflecting calcified phlebolith though a distal ureteral stone could appear similar in the appropriate clinical setting and if any clinical concern CT stone protocol could be obtained. 3. Apyk-is-kwyumbjd osteoarthritis of the hips with loss of superolateral joint space. US/US pelvic and transvaginal IMPRESSION: 1. No acute findings to explain symptoms of pelvic pain. 2. Multiple uterine myomas including a 2.3 cm transmural myoma in the fundus with a probable submucosal component. 3. Uterus is possibly arcuate morphology. External Record Review External record reviewed: Inpatient record, Office record and Outpatient record Discharge Plan Discharge Clinical Impression: Abdominal pain Patient Disposition: Home, Self-Care Instructions: Constipation (DC), Abdominal Pain (ED) Additional Instructions: You have been evaluated in the emergency department today for abdominal pain. Your evaluation did not show evidence of medical conditions requiring emergent intervention at this time. Your pain was most likely related to constipation and gas. We recommend that you continue to use stool softeners, fiber supplements, drink plenty of water, and you can use over the counter magnesium citrate if the stool softners are not working. Please schedule an appointment with your primary care physician for follow up. Return to the emergency department if you experience worsening or uncontrolled pain, fevers 100.4? F or greater, recurrent vomiting, inability to tolerate food or fluids by mouth, bloody stools or vomit, black or tarry stools, or any other concerning symptoms. Prescriptions: No Action cefuroxime axetil 250 mg tablet 250 mg PO BID 14 Days Qty: 28 0RF prednisone 20 mg tablet 20 mg PO DAILY 5 Days Qty: 5 0RF ketorolac 10 mg tablet 10 mg PO TID PRN (Reason: pain) 5 Days Qty: 15 0RF tamsulosin [Flomax] 0.4 mg capsule 0.4 mg PO DAILY 14 Days Qty: 14 0RF Print Language: Irish
--- NOTE | 2024-06-23 10:07 | PC.NURSE ---
biba from home d/t sudden onset pelvic pain radiating to LLQ x INSPECTOR TOOL. worsens w/ movement/positions. pt c/o nausea. denies vomiting/diarrhea. 20gIV placed in the right outer forearm - labs obtained/sent to lab. pt ambulated independently to the restroom w/o assistance - urine obtained/sent to lab. no sob/wob noted. respirations even/unlabored. plan of care ongoing. call mcclure placed within reach.
[2024-06-23 10:13] LABS: Appearance Urine Clear; Color Urine Dark Yellow; Glucose Urine UA Negative (Negative); Leukocyte Esterase Urine Small (1+) (Negative); Nitrite Urine Negative (Negative); UMIC TRIGGER UACC YES; Urine Blood Negative (Negative); Urine Ketones Trace mg/dL (Negative); Urine Protein Negative (Neg-Trace)
[2024-06-23 10:18] LABS: Bacteria Urine None Seen (None Seen); Hyaline Casts Urine 0-2 /LPF (0-2); RBC Urine 0-2 /HPF (0-2); UACC Culture Trigger YES
--- NOTE | 2024-06-23 10:32 | PC.NURSE ---
labs hemolyzed. reobtained/sent to lab by tech. pt to xray at this time.
[2024-06-23 10:34] LABS: Basophils Absolute Auto 0.1 X10*3/uL (0.0-0.2); Basophils Percent Auto 0.8 % (0-2); Eosinophils Absolute Auto 0.2 X10*3/uL (0.0-0.4); Hematocrit 46.7 % (37.0-47.0); Hemoglobin 15.4 g/dl (12.0-16.0); Imm Gran Abs Auto 0.04 X10*3/uL (0.00-0.03); Imm Gran Pct Auto 0.4 % (0.0-0.4); Lymphocytes Percent Auto 21.7 % (20-40); Mean Corpuscular Hemoglobin 29.3 pg (27.0-33.0); Mean Corpuscular Volume 88.8 fL (80.0-98.0); Mean Platelet Volume 9.6 fL (9.4-12.3); Monocytes Absolute Auto 0.5 X10*3/uL (0.1-1.2); Monocytes Percent Auto 5.5 % (2-11); Neutrophils Absolute Auto 6.4 x10*3/uL (2.0-8.3); Neutrophils Percent Auto 69.6 % (45-73); Platelet Count 289 X10*3/uL (160-400); Red Blood Count 5.26 X10*6/uL (4.20-5.50); Red Cell Distribution Width 13.4 % (11.0-16.0); White Blood Count 9.2 X10*3/uL (4.8-10.8)
[2024-06-23 10:58] LABS: Alanine Aminotransferase 21 U/L (0-31); Albumin Level 3.9 g/dL (3.5-5.0); Alkaline Phosphatase 118 U/L (39-117); Anion Gap 13 (12-20); Aspartate Amino Transferase 20 U/L (5-31); Bilirubin Total 0.6 mg/dL (0.0-1.0); Blood Urea Nitrogen 6 mg/dL (9-16); Calcium 9.3 mg/dL (8.4-10.2); Carbon Dioxide 27 mmol/L (22-29); Chloride 103 mmol/L (96-108); Creatinine Clr Calc Pharmacy 103.7; Estimated Glomerular Filt Rate > 60; Glucose Random 139 mg/dL (60-115); Lipase 32 U/L (8-78); Sodium 139 mmol/L (135-145)
[2024-06-23 11:11] LABS: HCG Quantitative < 2 mIU/mL
--- NOTE | 2024-06-23 13:05 | PC.NURSE ---
pt continues to rest in no apparent distress. waiting for xray/ultrasound results at this time. no sob/wob noted. respirations even/unlabored. plan of care ongoing. call mcclure placed within reach.
[2024-06-23 13:07] VITALS: BP 141/91; PULSE 66; RESP 16; TEMP 36.7; O2SAT 98
[2024-06-23 14:46] VITALS: BP 141/91; PULSE 66; RESP 16; TEMP 36.7; O2SAT 98
== END 2024-06-23 14:50 | disposition home or self-care (01) ==
PROVIDERS: Registered Nurse Emergency; Emergency Provider Emergency Medicine; PCP Nurse Practitioner Family
DX: R10.2 Pelvic and perineal pain (principal)
CPT/HCPCS: 36415; 74018; 76830; 76856; 80053; 81001; 83690; 84702; 85025; 87086; 99284

== ENCOUNTER 2025-05-02 19:40 | Emergency (ER) | payer OTHER, SELFPAY ==
--- OUTSIDE RECORDS SUMMARY | 2024-01-31 05:10 | XMS_ITS ---
Author Organization [facility] Address [address] [place] [address] Care Team Providers Care Rn Or Lvn Name Role Phone Margie Concepcion CNP Primary Care Provider Unavail Jimbo Hernandez [phone] REASON FOR VISIT Patient presents today for a fatty liver Encounters Encounter Location Date Provider Diagnosis [facility] [address] [place] [phone] 01/31/2024 Jimbo Nascimento Plan Of Treatment No Information Progress Notes * LUISANA SAMS LDOB:[birth year] (44 yo F)Acc No.[id number]:01/31/2024 Progress Notes Patient: LUISANA ELIAS Provider: Kesha Nascimento MD :1980 A ge:43 Y S ex:Female Date:01/31/2024 Address: [address], [id number] Pcp:Margie Concepcion CNP Subjective: * Chief Complaints: * 1 . Patient presents today for a fatty liver. * Medical History: Objective: * Vitals: Assessment: Plan: * Treatment: * * The named appointment provid er may or may not be the originator of this progress note, and it is not deemed complete until electronically signed by the appointment provider. Sign off status: Pending * Provider: Kesha Nascimento MD Date: 01/31/2024 Generated for Printi ng/Faxing/eTransmitting on: 0 05/02/2025 09:34 PM EDT
--- OUTSIDE RECORDS SUMMARY | 2025-04-28 23:59 | XMS_ITS | Continuity of Care Document ---
Author Organization [facility] Adult Address [address] [place] [address]- Care Team Providers Care School Psychometrist Name Role Phone Carlene DEAL, Margie Pereyra Primary Care Physician Encounter [facility] R [id number] Date(s): 02/26/25 - 04/28/[address] [address]- Encounter Diagnosis Cigarette smoker(Discharge Diagnosis) - 03/29/25 Tonsillectomy(Discharge Diagnosis) - 03/29/25 HTN (hypertension)(Discharge Diagnosis) - 03/29/25 Elevated blood pressure reading(Discharge Diagnosis) - 03/29/25 Attending Physician: Margie Concepcion NP Encounter Type: Pre Office Visit Allergies, Adverse Reactions, Alerts Substance Criticality Severity Reaction Reaction Severity Status Vicodin Active traMADol Active traZODone Active Immunizations Given and Recorded Vaccine Date Status Refusal Reason tetanus/diphtheria/pertussis, acel(Tdap) 11/29/24 Recorded tetanus/diphtheria/pertussis, acel(Tdap) 09/05/08 Recorded Hepatitis A Adult Vaccine 01/13/24 Recorded Hepatitis A Adult Vaccine 03/01/23 Recorded [id number] 12y+ bivalent booster vax 09/09/22 Recorded SARS-CoV-2 (COVID-19) mRNA BNT-162b2 vac 01/26/21 Recorded SARS-CoV-2 (COVID-19) mRNA BNT-162b2 vac 01/04/21 Recorded influenza virus vaccine, inactivated 1 08/04/18 Re corded influenza virus vaccine, inactivated 07/19/18 Quentin rded influenza virus vaccine, inactivated 07/16/10 Quentin rded influenza virus vaccine, inactivated 09/05/08 Quentin rded pneumococcal 23-valent vaccine 07/19/18 Recorded 1Location History: another doctor office Medications Blood Pressure Monitor Blood Pressure Monitor, See Instructions, # 1 each, Refills 0, Tot. Refills 0, Maintenance, Use to monitor blood pressure DX: Hypertension, 07/13/22 9:26:00 AM EDT, Supply Start Date: 07/13/22 Status: Ordered Quantity: 1.0 Unit: each Repeat number: 1 Indications: Essential (primary) hypertension; Colace sodium 100 mg oral capsule 100 mg, 1, capsule, By Mouth, Daily, PRN, # 90 capsule, Refills 1, Tot. Refills 1, Maintenance, forconstipation, 02/23/24 8:14:00 AM EDT, Route to Pharmacy Electronically, [facility] #[id number],Partial fill upon patient request if the prescription is for a schedule II opioid drug., 165, cm, 02/23/24 7:52:00 EDT, Height, 95.5, kg, 02/22/23 11:35:00 EDT, Dry Weight Start Date: 02/23/24 Status: Ordered Quantity: 90.0 Unit: capsule Repeat number: 2 CPAP Machine See Instructions, # 1 each, Refills 0, Tot. Refills 0, Maintenance, CPAP 9 with a heated humidifierwith compliance data tracking capabilities and following residual AHI. MAXWELL: Lifetime DX: G47.33, 04/06/23 1:47:00 PM EDT, Supply Start Date: 04/06/23 Status: Ordered Quantity: 1.0 Unit: each Repeat number: 1 Indications: Obstructive sleep apnea (adult) (pediatric); CPAP Equipment See Instructions, # 1 each, Refills 11, Tot. Refills 11, Maintenance, Face Mask, tubing, filters, head gear, chin strap, water chamber. Use nightly with compressor for obstructive sleep apnea (G47.33) MAXWELL: Lifetime, 04/06/23 1:50:00 PM EDT, Compound Start Date: 04/06/23 Status: Ordered Quantity: 1.0 Unit: each Repeat number: 12 Indications: Obstructive sleep apnea (adult) (pediatric); duloxetine 20 mg oral enteric coated capsule 1 capsule = 20 mg, By Mouth, 2 times a day, # 60 capsule, 6 Refills, Maintenance, 02/26/25 10:18:00 AM EDT, EC Capsule, [facility] #[id number], Partial fill upon patient request if the prescription is for a schedule II opioid drug., 167.8, cm, 02/26/25 9:56:00 EDT, Height Start Date: 02/26/25 Stop Date: 09/24/25 Status: Ordered Quantity: 60.0 Unit: capsule Repeat number: 7 Flonase 50 mcg/inh nasal spray 1 sprays, Nares, Both, 2 times a day, # 1 each, 0 Refills, Maintenance, 08/18/22 1:03:00 PM EDT, [place], [facility] #[id number], Partial fill upon patient request if the prescription is for a schedule II opioid drug., 1 sprays Nares, Both 2 times a day,x30 days, 165, cm, 08/18/22 11:48:00 EDT, Height, 97.1, kg, 04/12/22 16:56:00 EDT, Dry Weight Start Date: 08/18/22 Stop Date: 09/17/22 Status: Ordered Quantity: 1.0 Unit: each Repeat number: 1 FreeStyle Preethi 2 Monitor See Instructions, # 1 each, Maintenance, apply as directed, 03/01/23 12:25:00 PM EDT, Supply, 165, cm, 02/22/23 11:35:00 EDT, Height, 95.5, kg, 02/22/23 11:35:00 EDT, Dry Weight Start Date: 03/01/23 Status: Ordered Quantity: 1.0 Unit: each Repeat number: 1 Indications: Type 2 diabetes mellitus without complications; FreeStyle Preethi 2 Sensors See Instructions, # 2 each, Refills 6, Tot. Refills 6, Maintenance, change every 14 days, 03/01/23 12:25:00 PM EDT, Supply, 165, cm, 02/22/23 11:35:00 EDT, Height, 95.5, kg, 02/22/23 11:35:00 EDT, Dry Weight Start Date: 03/01/23 Status: Ordered Quantity: 2.0 Unit: each Repeat number: 7 Indications: Type 2 diabetes mellitus without complications; Freestyle Lite Lancets See Instructions, # 50 each, Refills 5, Tot. Refills 5, Maintenance, use once daily for type 2 DM, 12/22/23 7:38:00 AM EST, Supply, 165, cm, 10/12/23 12:29:00 EST, Height, 95.5, kg, 02/22/23 11:35:00 EDT, Dry Weight Start Date: 12/22/23 Status: Ordered Quantity: 50.0 Unit: each Repeat number: 6 Freestyle Lite Monitor See Instructions, # 1 each, Maintenance, use once daily for type 2 DM, 04/07/22 11:41:00 AM EDT, Supply, 165, cm, 04/06/22 14:44:00 EDT, Height, 102.4, kg, 03/04/22 11:05:00 EDT, Dry Weight Start Date: 04/07/22 Status: Ordered Quantity: 1.0 Unit: each Repeat number: 1 Freestyle Lite Test Strips See Instructions, # 50 each, Refills 1, Tot. Refills 1, Maintenance, use once daily for type 2 DM, 08/24/22 3:17:00 PM EDT, Supply, 165, cm, 08/18/22 11:48:00 EDT, Height, 97.1, kg, 04/12/22 16:56:00 EDT, Dry Weight Start Date: 08/24/22 Status: Ordered Quantity: 50.0 Unit: each Repeat number: 2 Indications: Type 2 diabetes mellitus without complications; glipiZIDE 10 mg oral tablet 1 tablet, By Mouth, Daily, # 30 tablet, 6 Refills, Maintenance, 02/26/25 10:25:00 AM EDT, [facility] #[id number], 167.8, cm, 02/26/25 9:56:00 EDT, Height Start Date: 02/26/25 Stop Date: 09/24/25 Status: Ordered Quantity: 30.0 Unit: tablet Repeat number: 7 hydrOXYzine hydrochloride 25 mg oral tablet 1 tablet = 25 mg, By Mouth, 2 times a day, for 30 days, # 60 tablet, 3 Refills, Acute 07/27/25 12:29:00 PM EDT, 03/29/25 12:29:00 PM EDT, Tablet, [facility] #[id number], Partial fill upon patient request if the prescription is for a schedule II opioid drug., 167.8, cm, 03/29/25 9:49:00 EDT, Height Start Date: 03/29/25 Stop Date: 07/27/25 Status: Ordered Quantity: 60.0 Unit: tablet Repeat number: 4 lisinopril 10 mg oral tablet 10 mg, 1, tablet, By Mouth, Daily, # 30 tablet, Refills 6, Tot. Refills 6, Maintenance, 02/26/25 10:22:00 AM EDT, Route to Pharmacy Electronically, [facility] #[id number], Partial fill upon patient request if the prescription is for a schedule II opioid drug., 167.8, cm, 02/26/25 9:56:00 EDT, Height Start Date: 02/26/25 Stop Date: 09/24/25 Status: Ordered Quantity: 30.0 Unit: tablet Repeat number: 7 lisinopril 20 mg oral tablet 20 mg, 1, tablet, By Mouth, Daily, # 30 tablet, Refills 1, Tot. Refills 1, Maintenance, 03/29/25 12:29:00 PM EDT, Route to Pharmacy Electronically, [facility] #[id number], Partial fill upon patient request if the prescription is for a schedule II opioid drug., 167.8, cm, 03/29/25 9:49:00 EDT, Height Start Date: 03/29/25 Stop Date: 05/28/25 Status: Ordered Quantity: 30.0 Unit: tablet Repeat number: 2 metFORMIN 1000 mg oral tablet 1 tablet, By Mouth, 2 times a day, # 180 tablet, 6 Refills, Maintenance, 02/26/25 10:25:00 AM EDT, [facility] #[id number], 167.8, cm, 02/26/25 9:56:00 EDT, Height Start Date: 02/26/25 Status: Ordered Quantity: 180.0 Unit: tablet Repeat number: 7 Methadone = 92 mg, By Mouth, Daily, 0 Refills, Maintenance, 04/06/22 2:56:00 PM EDT, Partial fill upon patientrequest if the prescription is for a schedule II opioid drug. Start Date: 04/06/22 Status: Ordered Repeat number: 1 miconazole 2% topical cream 1 application, Topically, 2 times a day, # 60 Gm, 1 Refills, Maintenance, 09/01/23 2:04:00 PM EST, Cream, [facility] #[id number], Partial fill upon patient request if the prescription is for a schedule II opioid drug., 1 application Topically 2 times a day,x30 days, 165, cm, 07/05/23 11:49:00 EDT, Height, 95.5, kg, 02/22/23 11:35:00 EDT, Dry Weight Start Date: 09/01/23 Stop Date: 10/31/23 Status: Ordered Quantity: 60.0 Unit: g Repeat number: 2 miconazole 2% topical cream 1 application, Topically, 2 times a day, # 45 Gm, 1 Refills, Maintenance, 02/26/25 10:30:00 AM EDT, Cream, [facility] #[id number], Partial fill upon patient request if the prescription is for a schedule II opioid drug., 1 application Topically 2 times a day,x30 days, 167.8, cm, 02/26/25 9:56:00 EDT, Height Start Date: 02/26/25 Stop Date: 04/27/25 Status: Ordered Quantity: 45.0 Unit: g Repeat number: 2 Nicoderm C-Q Clear 21 mg/24 hr transdermal film, extended release See Instructions, 21 mg for 6 weeks, 14 mg for 2 weeks and 7 mg for 2 weeks. apply to skin, # 42 each, 0 Refills, Maintenance, 12/27/23 9:19:00 AM EST, Patch, [facility] #[id number], Partial fill upon patient request if the prescription is for a schedule II opioid drug., 165, cm, 12/27/23 9:16:00 EST, Height, 95.5, kg, 02/22/23 11:35:00 EDT, Dry Weight Start Date: 12/27/23 Status: Ordered Quantity: 42.0 Unit: each Repeat number: 1 Ozempic (1 mg dose) 4 mg/3 mL subcutaneous solution = 1 mg, Subcutaneous Injection, Every week, # 1 each, 0 Refills, Maintenance, 02/26/25 10:21:00 AM EDT, Solution, [facility] #[id number], Partial fill upon patient request if the prescription is for a schedule II opioid drug., 167.8, cm, 02/26/25 9:56:00 EDT, Height Start Date: 02/26/25 Stop Date: 03/28/25 Status: Ordered Quantity: 1.0 Unit: each Repeat number: 1 Xopenex HFA 45 mcg/inh inhalation aerosol INHALE 1 PUFF BY MOUTH EVERY 4 HOURS NEEDED FOR WHEEZING Start Date: 04/06/22 Status: Ordered Repeat number: 1 Xopenex HFA 45 mcg/inh inhalation aerosol 1 puffs, Inhalation, Every 4 hours, PRN for wheezing, # 1 each, 6 Refills, Maintenance, 02/26/25 10:29:00 AM EDT, Aerosol, [facility] #[id number], Partial fill upon patient request if the prescription is for a schedule II opioid drug., 167.8, cm, 02/26/25 9:56:00 EDT, Height Start Date: 02/26/25 Stop Date: 09/24/25 Status: Ordered Quantity: 1.0 Unit: each Repeat number: 7 Indications: Unspecified asthma, uncomplicated; Problem List Condition Confirmation Course Effective Dates Status Health St [facility] Informant Anxiety Confirmed Active Bipolar disorder Confirmed Active Chronic back pain Confirmed Active Interstitial cystitis Confirmed Active COPD (chronic obstructive pulmonary disease) Confirmed Active Cigarette smoker Confirmed Active Constipation Confirmed Active Depression Confirmed Active Diabetes Confirmed 04/06/22 Active Dyspnea on exertion Confirmed Active Fatigue Confirmed Active Fibromyalgia Confirmed Active GERD (gastroesophageal reflux disease) Confirmed Active Goiter Confirmed Active HTN (hypertension) Confirmed Active Intermittent palpitations Confirmed Active Anxiety and depression Confirmed Active Multiple joint pain Confirmed Active Pulmonary nodules Confirmed Active Obese class I Confirmed Active Opioid dependence in remission Confirmed Active Palpitations Confirmed Active Polycystic ovary syndrome Confirmed Active COPD with emphysema Confirmed Active Sleep apnea Confirmed Active Thyroid nodule Confirmed Active Tobacco user Confirmed Active Urge urinary incontinence Confirmed Active Urgency of micturition Confirmed Active Diagnosis Diagnosis Type Effective Dates Health Status Clinical Service Informant Cigarette smoker Discharge Diagnosis 03/29/25 Tonsillectomy Discharge Diagnosis 03/29/25 HTN (hypertension) Discharge Diagnosis 03/29/25 Elevated blood pressure reading Discharge Diagnosis 03/29/25 Social History Social History Type Response Smoking Status Current every day sm oker; Type: Cigarettes; Other: Smokes 5- 10 per day - in process of quitting; entered on: 07/24/18 Sex Sex Representation Female (finding) Patient Care team information Care Team Personnel Name: Carlene DEAL, Margie Pereyra Position: S PCO Associate Professional Member Role: PCP Address: [address] [place] [id number] Telecom: Care Team Related Persons Name: MELANIE GUDINO Name: BLAINE COBB Insurance Providers Guarantor name: [facility] [employer] Plan Information #: 1 Payer: [facility] Payer Identifier: NA Member Number: [id number] Group Number: [id number] Subscriber Identifier: [id number] Relationship to Subscriber: self Coverage Type: Medicaid (Managed Care) Coverage Verification Date: NA Telecom: NA Address:
[2025-05-02 19:49] VITALS: BP 169/79; PULSE 82; RESP 16; TEMP 36.4; O2SAT 99
--- NOTE | 2025-05-02 19:50 | ED_ITS ---
HPI - General Adult General Chief complaint: Recheck/Abnormal Lab/Rx Stated complaint: high bp 210/116 flushed,blood sugars over 400 Time Seen by Provider: 05/02/25 22:14 Source: patient Limitations: no limitations History of Present Illness ED Provider: Clementine Fine PA-C HPI narrative: 43-year-old female with history of HTN, PCOS, COPD, DM, cholecystectomy, interstitial cystitis, Bipolar disorder, anxiety, polysubstance abuse currently on methadone who presents to the ER with a complaint of elevated BP readings Reports that she stopped ozempic. Took an extra dose of lisinopril prior to leaving her house due to her BP. Bp was 210/113 today. Patient also concerned that her blood sugars have been labile. Patient admits she has not been taking her medications as directed, she also has not been eating appropriately. Patient also states she has been nonadherent with a blood pressure medication. Patient states she has relapsed, she used fentanyl today. Patient is requesting resources for detox. Denies SI or HI. Denies chest pain, shortness of breath, abdominal pain nausea vomiting. Related Data Previous Rx's ?Medication ?Instructions ?Recorded cefuroxime axetil 250 mg tablet 250 mg PO BID 14 days #28 tabs 09/23/23 ketorolac 10 mg tablet 10 mg PO TID PRN pain 5 days #15 09/23/23 tabs prednisone 20 mg tablet 20 mg PO DAILY 5 days #5 tab s 09/23/23 tamsulosin 0.4 mg capsule (Flomax) 0.4 mg PO DAILY 2 w eeks #14 caps 09/23/23 Allergies Allergy/AdvReac Type Severity Reaction Status Date / Time trazodone (TRAZODONE) Allergy Unknown ANXIETY Verified 05/02/25 19:51 diazepam (From VALIUM) AdvReac Intermediate TREMORS Verified 05/02/25 19:51 hydrocodone (HYDROCODONE) AdvReac Intermediate NAUSEA & Verified 05/02/25 19:51 VOMITING From ULTRAM Allergy Unknown AGITATION Uncoded 05/02/25 19:51 Review of Systems 2 Review of Systems: Yes all other systems are reviewed and are negative Constitutional: Constitutional: Denies fatigue and Denies fever(s) Cardiovascular: Cardiovascular: Denies chest pain and Denies dyspnea Respiratory: Respiratory: Denies dyspnea Gastrointestinal: Gastrointestinal: Denies abdominal pain, Denies nausea and Denies vomiting Endocrine: Endocrine: Denies fatigue [facility] Past Medical History Attestation statement: The following information was validated with the patient. Medical History Anxiety Bipolar 1 disorder COPD (chronic obstructive pulmonary disease) Interstitial cystitis Opiate addiction PVC (premature ventricular contraction) Social History Social History Smoked in Last 30 Days: Yes Use of substances other than those prescribed or required for medical reasons: Yes Substance Use Type: Heroin Substance Use Type Other:: last use right before arrival Substance Use Frequency: Monthly Substance Use Frequency Other:: few times a month Last Used Substance: Just Prior to Admission Any prior treatment program specific to substance use: Yes Advance Directives: Yes Advance Directives Information Provided: Yes Advance Directives on File: No Do you have a plan to hurt others: No Plan Physical Exam ED Vital Signs: Vital Signs - 24 hr 05/02/25 19:49 05/02/25 21:01 Temperature 97.5 F Pulse Rate 82 75 Respiratory Rate 16 18 Blood Pressure 169/79 H 121/80 Pulse Oximetry 99 97 Oxygen Delivery Method Room Air Room Air BMI result Body Mass Index 30.0 Const Other: Alert, appears older than stated age Orientation/consciousness: patient oriented x3 Resp Effort & Inspection: normal respiratory effort Cardio Other: Normal peripheral perfusion Skin Other: Warm dry no rash Neuro General: patient oriented x3, gait normal, no focal motor deficits and CN's II- XI intact bilaterally Psych Other: Cooperative, tearful at times Course Course Course Narrative: This is an RME: Additional HPI, ROS, PE not included below will be deferred to primary provider. RME assessment and note performed by: Trinh Wilson PA-C 43-year-old female with history of HTN, PCOS, COPD, DM, cholecystectomy, interstitial cystitis, Bipolar disorder, anxiety, currently on methadone who presents to the ER with a complaint of elevated BP readings Reports that she stopped ozempic. Took an extra dose of lisinopril prior to leaving her house due to her BP. Bp was 210/113 today. Plan: Labs, POC further ER eval needed. Medical Decision Making Medical Decision Making MDM Narrative: 43-year-old female with history of HTN, PCOS, COPD, DM, cholecystectomy, interstitial cystitis, Bipolar disorder, anxiety, polysubstance abuse currently on methadone who presents to the ER with a complaint of elevated BP readings Reports that she stopped ozempic. Took an extra dose of lisinopril prior to leaving her house due to her BP. Bp was 210/113 today. Patient also concerned that her blood sugars have been labile. Patient admits she has not been taking her medications as directed, she also has not been eating appropriately. Patient also states she has been nonadherent with a blood pressure medication. Patient states she has relapsed, she used fentanyl today. Patient is requesting resources for detox. Denies SI or HI. Denies chest pain, shortness of breath, abdominal pain nausea vomiting. Problem: Polysubstance abuse, psychiatric illness, hypertension, diabetes History: Per patient I have considered the following differential diagnoses: Decompensated psychiatric illness, SI, HI, drug/alcohol intoxication, hypertensive urgency/emergency, end-organ damage, hyperglycemia, HHS, DKA Plan: Screening labs are in process, the patient is not in DKA. She has no evidence of end-organ damage. She is not hypertensive here in the ER. Her sugars 334, I was suggesting IV fluid therapy, she declines. I did offer detox, she declines. But she would like resources. I have told the patient she can return at any time for detox if she feels she needs help with the process. She is not exhibiting psychosis, she is not suicidal, there was no indication for care team consult at this time. I have independently reviewed the following tests: Labs: Slight leukocytosis, not anemic, no electrolyte abnormality, blood sugar 334, no gap, not , trop less than 2.7 Lab Data 05/02/25 20:12 05/02/25 20:12 Labs: Lab Results 05/02/25 05/02/25 05/02/25 Range/Units 20:12 20:33 21:07 WBC 13.9 H (4.8-10.8) X10*3/uL RBC 5.34 (4.20-5.50) X10*6/uL Hgb 15.5 (12.0-16.0) g/dl Hct 44.8 (37.0-47.0) % MCV 83.9 (80.0-98.0) fL MCH 29.0 (27.0-33.0) pg MCHC 34.6 (31.0-35.0) g/dl RDW 13.8 (11.0-16.0) % Plt Count 305 (160-400) X10*3/uL MPV 9.8 (9.4-12.3) fL Immature Gran % (Auto) 0.7 H (0.0-0.4) % Neut % (Auto) 73.6 H (45-73) % Lymph % (Auto) 19.2 L (20-40) % Rolette % (Auto) 4.8 (2-11) % Eos % (Auto) 1.0 (0-4) % Baso % (Auto) 0.7 (0-2) % Lymph # (Auto) 2.7 (1.2-4.9) X10*3/uL Rolette # (Auto) 0.7 (0.1-1.2) X10*3/uL Eos # (Auto) 0.1 (0.0-0.4) X10*3/uL Baso # (Auto) 0.1 (0.0-0.2) X10*3/uL Abs Immat Gran (auto) 0.10 H (0.00-0.03) X10*3/uL Absolute Neuts (auto) 10.2 H (2.0-8.3) x10*3/uL Absolute Nucleated RBC 0.000 (0.0-0.012) X10*3/uL Nucleated RBC % (auto) 0.0 (0.0-0.2) /100WBC VBG pH 7.37 (7.32-7.43) VBG pCO2 52 mmHg VBG pO2 48 mmHg VBG HCO3 30 H (22-26) mmol/L VBG O2 Saturation 71.0 % VBG Base Excess 3.9 mmol/L Sodium 133 L (135-145) mmol/L Potassium 4.1 (3.3-5.1) mmol/L Chloride 98 (96-108) mmol/L Carbon Dioxide 25 (22-29) mmol/L Anion Gap 14 (12-20) BUN 9 (9-16) mg/dL Creatinine 0.69 (0.5-1.4) mg/dL Estim Creat Clear Calc 116.5 Estimated GFR > 60 POC Glucose 334 H (60-115) mg/dL Random Glucose 347 H (60-115) mg/dL Calcium 9.2 (8.4-10.2) mg/dL Magnesium 1.7 (1.6-2.6) mg/dL Total Bilirubin 0.5 (0.0-1.0) mg/dL Direct Bilirubin 0.2 (0.0-0.5) mg/dL AST 36 H (5-31) U/L ALT 47 H (0-31) U/L Alkaline Phosphatase 190 H (39-117) U/L Troponin I High Sens < 2.7 (<3.5-17.0) ng/L B-Natriuretic Peptide < 10 (<100) pg/mL Total Protein 7.6 (6.5-8.0) g/dL Albumin 4.3 (3.5-5.0) g/dL Beta HCG, Quant < 2 mIU/mL Discharge Plan Discharge Clinical Impression: Hyperglycemia Patient Disposition: Home, Self-Care Instructions: Diabetic Hyperglycemia (ED) Additional Instructions: Your blood sugar was elevated to the 300s, however you did not have associated lab abnormalities. You need to eat appropriately and take your medications appropriately. You also requested resources for detox, you were given a list of local facilities. Prescriptions: No Action cefuroxime axetil 250 mg tablet 250 mg PO BID 14 Days Qty: 28 0RF prednisone 20 mg tablet 20 mg PO DAILY 5 Days Qty: 5 0RF ketorolac 10 mg tablet 10 mg PO TID PRN (Reason: pain) 5 Days Qty: 15 0RF tamsulosin [Flomax] 0.4 mg capsule 0.4 mg PO DAILY 14 Days Qty: 14 0RF Interventions: ED Discharge Assessment Last Done: 05/02/25 22:53 Discharge Date/Time: 05/02/25 22:53 Print Language: [place]
[2025-05-02 20:16] LABS: MANUAL DIFF FLAG NO
[2025-05-02 20:21] LABS: Hematocrit 44.8 % (37.0-47.0); Hemoglobin 15.5 g/dl (12.0-16.0); Imm Gran Abs Auto 0.10 X10*3/uL (0.00-0.03); Imm Gran Pct Auto 0.7 % (0.0-0.4); Lymphocytes Absolute Auto 2.7 X10*3/uL (1.2-4.9); Mean Corpuscular HGB Conc 34.6 g/dl (31.0-35.0); Mean Corpuscular Hemoglobin 29.0 pg (27.0-33.0); Mean Corpuscular Volume 83.9 fL (80.0-98.0); NRBC Abs Auto 0.000 X10*3/uL (0.0-0.012); NRBC Pct Auto 0.0 /100WBC (0.0-0.2); Platelet Count 305 X10*3/uL (160-400); Red Blood Count 5.34 X10*6/uL (4.20-5.50); White Blood Count 13.9 X10*3/uL (4.8-10.8)
[2025-05-02 20:36] LABS: Venous Blood Gas Refer to POC result
[2025-05-02 20:36] LABS: VBG HCO3 30 mmol/L (22-26); VBG O2 % Saturation 71.0 %
[2025-05-02 20:42] LABS: B Type Natriuretic Peptide < 10 pg/mL (<100)
[2025-05-02 20:43] LABS: Alanine Aminotransferase 47 U/L (0-31); Albumin Level 4.3 g/dL (3.5-5.0); Alkaline Phosphatase 190 U/L (39-117); Anion Gap 14 (12-20); Aspartate Amino Transferase 36 U/L (5-31); Blood Urea Nitrogen 9 mg/dL (9-16); Calcium 9.2 mg/dL (8.4-10.2); Carbon Dioxide 25 mmol/L (22-29); Chloride 98 mmol/L (96-108); Creatinine Clr Calc Pharmacy 116.5; Estimated Glomerular Filt Rate > 60; Magnesium 1.7 mg/dL (1.6-2.6); Potassium 4.1 mmol/L (3.3-5.1); Sodium 133 mmol/L (135-145); Total Protein 7.6 g/dL (6.5-8.0)
[2025-05-02 20:47] LABS: Troponin-I High Sensitivity < 2.7 ng/L (<3.5-17.0)
[2025-05-02 21:01] VITALS: BP 121/80; PULSE 75; RESP 18; O2SAT 97
[2025-05-02 21:11] LABS: Glucose, Whole Blood 334 mg/dL (60-115)
--- OUTSIDE RECORDS SUMMARY | 2025-05-02 21:34 | XMS_ITS | Data Portability ---
Author Organization [place] [facility], [facility] Address [address] [place] [phone] Assessment Encounter Date Assessment Date Assessment LastModified by Organization Details LastModified Time 03/22/2020 03/22/2020 Overview/History : Pt is a 39yo F with PMH sig for Substance abuse on methadone maintainance, denies recent heroin use, HTN and COPD. Pt reports she has been having fluctuating back pain for the last week or so. States last night was the worst. She reports severe pain with even slight movement and deep breaths. She states that last night she was also having RUQ pain. She denies any n/v/d. Exam: Pt is A/Ox3, non-toxic but uncomfortable appearing, VSS, HRR, resp reg and unlabored on RA, lungs CTA bilat. Pt with guarded movements, tenderness with light palpation of the right flank and low back. Abd soft, tender to the RUQ with a pos alcazar's sign, non-distended, +BSx4. Pos right CVA tenderness. DDx considered, but not limited to: Inflammation of the Liver: possible given RUQ pain Hepatitis: possible given hx of IV drug use Muscle strain: possible given area is tender to touch Peylo: possible, but pt is afebrile and non-toxic appearing Kidney Stone: possible given location of pain Work up/Results: escalated to the ER Plan/Discussion: Given extent of patients pain along with significant tenderness to the RUQ despite prior cholectomy pt advised to follow up in the ER. Pt opted to go by private car. Discussed risks and benefits and at this time private car deemed safe for patient transport. Pt given ketorolac 15mg IM to help with pain while enroute to the hospital. Patients PCP contacted and updated on patient status. Patient verbalized understanding of discharge instructions and when to follow up with PCP/911/ED as needed. Patient in agreement with current plan and treatment. In order to obtain further information and compare any laboratory results/values, I have accessed patient records on the [employer]. This information was pertinent in my medical decision making today. Time On Scene with Patient: 00:35:06 - Referred - Point of Care: Emergency Department [email or web address] Not available 03/22/2020 19:30:39 Plan of Treatment Reminders Order Date Submit Date Provider Last Modified By Organization Details Last Modified Time Details Appointments None recorded. Lab None recorded. Referral None recorded. Procedures None recorded. Surgeries None recorded. Imaging None recorded. Medication Orders ketorolac 30 mg/mL (1 mL) injection solution 2019 020 [id number], [address], [place], [id number], 0 17:53:36 Patient TargetsNo targets recorded. Patient Instructions Encounter Date Encounter Id Patient Instructions Last Modified By Organization Details Last Modified Time 03/22/2020 [id number] Back Pain - Discharge Instructions Basic Information: Back pain is a common problem, and has many different causes. Most back pain will improve within 2 weeks of onset. Common causes include lifting, twisting movements, overuse, unusual movements, stress, prolonged sitting, poor posture, being overweight and less commonly structural issues such as disc problems(sciatica) or fractures. X-rays and MRI s are rarely indicated unless there has been significant trauma, if you are having certain abnormal neurologic abnormalities, or if you have certain underlying medical conditions that can cause spinal problems. Instructions: Avoid heavy lifting, bending ,twisting or prolonged sitting. Be as active as you can comfortably be, walking often makes back pain feel better. Be sure to change position at least every 2 hours to avoid stiffening up. BED REST IS NOT RECOMMENDED FOR BACK PAIN AND WILL MAKE YOU FEEL WORSE! Ice for 15 minutes every 2 hours and after 48 hours you may alternate with moist heat for 15 minutes. DO NOT FALL ASLEEP ON THE HEATING PAD, this will cause the area to swell and hurt more! When getting out of bed, roll to your side, and dangle your legs over the edge of the bed while pushing up with your hand and elbow to a seated position. Place a pillow between your knees while lying on your side, and under your legs when lying on your back to remove stress from the spine. Practice good posture as much as you are able, shoulders back, head up, abdomen pulled in. Gentle stretching, lie on your back and gently hug your knees. When you are feeling better there are many exercises that can help you treat and prevent low back pain, check with your Provider. If you are having pain/numbness going down your legs the Taylor exercises are designed to relieve this pain, you can find demonstrations on H[employer] 3[employer] Weight loss will help to relieve stress on your back. Smoking can make back pain worse, try to limit or quit smoking, check with your provider about methods to help stop smoking. Medications: Based on your history and examination your provider will design a medication regimen specifically for your condition, this may include some of the following medications. Acetaminophen/Tyle nol: if you do not have any liver issues. Non-steroidal anti inflammatories/NSA IDS: These category includes ibuprofen (Motrin. Advil) and Naproxen (Aleve/Naprsoyn) and other medications. Anti-inflammatorie s are powerful pain relievers and the first line treatment for back pain. NSAID s should be taken with food. People with kidney disease, hypertension or on blood thinners should not take these medications. Other medications may be prescribed, if they contain muscle relaxants or narcotic pain relievers DO NOT DRINK ALCOHOL, DRIVE OR OPERATE HEAVY MACHINERY WHILE TAKING THESE MEDICATIONS! Follow Up: You will need to follow up with your PCP for reevaluation within a few days If your back pain persists for more than 2 months or your condition deteriorates you may require further evaluation and testing. If you experience worsening and persistent numbness/weakness/ tingling, have numbness of your genitals, inability to urinate or losing urine, severe pain, fever more than 101.5, or are worse go to the ER for further evaluation. If you have additional concerns or develop a change in your condition between 8am-10pm, please call [facility] at [phone] to help navigate your care. courtney Not available 03/22/2020 15:58:08 Reason for Referral None Reported. Problems Name Problem SNOMED Code Status Onset Date Resolution Date Notes Provider Name and Address Organization Details Recorded Time Chronic obstructive pulmonary disease 74242219 Active 2019 NATHAN GREEN , [employer] [address], [place], [address], [place] [facility] 0 15:54:27 Problem Notes None recorded. Medical Equipment None Reported. Allergies Allergen ID Allergen Name Allergen Category Reaction Reaction Severity Criticality Documentation Date Start Date Code Code System Note Provider Name and Address Organization Details Recorded Time 719656 acetamino phen / hydrocodo ne medicatio n Not available Not available Not available 03/22/2020 02461 2 RxNorm NATHAN GREEN , [employer] [address], [place], [address], [place] [facility] 0 15:56:58 241237 tramadol medicatio n Not available Not available Not available 03/22/2020 56254 RxNorm NATHAN GREEN , [employer] [address], [place], [address], [place] [facility] 0 15:57:03 096046 trazodone medicatio n Not available Not available Not available 03/22/2020 04546 RxNorm NATHAN GREEN , [employer] [address], [place], [address], [place] [facility] 0 15:57:27 Medications Name Sig Start Date Stop Date Status Note LastModified by Organization Details LastModified Time ketorolac 30 mg/mL (1 mL) injection solution 15 mg administered on scene. Time administered :1615 2019 active Not Available Not Available Not Avai lable methadone active Not Available Not Monique ilable Not Available metoprolol succinate active Not Available Not Available No t Available Xopenex active Not Available Not Avail able Not Available Spiriva Respimat active Not Available Not Available Not Available Vitals Date Recorded Body temperature Oxygen saturation Oxygen saturation in Arterial blood by Pulse oximetry Heart rate Respiratory rate Systolic And Diastolic Provider Name and Address Organization Details Last Updated DateTime 0 98.2 [degF] 95 % 95 % 68 /min 16 /min 160/100 mm[Hg] Not Available [facility] 0 15:53:23 Social History Question Answer Notes LastModified by Organizat ion Details LastModified Time Tobacco Smoking Status Current Every Day Smoker NATHAN GREEN NP [address] [place], [address], [place] [facility] 03/22/2020 15:55:57 Do You Have An Advance Directive? Yes Information not available 03/22/2020 What Is Your Code Status? Full Code Information not available 03/22/2020 Excessive Alcohol Or Drug Use No Pt Has Been Stable On Methadone Maitaince For Several Years. Denies Recent Substance Abuse. Information not available 03/22/2020 How Much Tobacco Do You Smoke? 2 PPW Information not available 03/22/2020 How Many Years Have You Smoked Tobacco? 30 Information not available 03/22/2020 Sex: Unknown Functional Status Question Answer Note LastModified by Organizat ion Details LastModified Time Do you or have you ever used e-cigarettes or vape? Never used electronic cigarettes Information not available 03/22/2020 Mental Status None recorded. Family History Nothing Reported. Medical History Condition Response Hypertension Y COPD Y Asthma N Gynecological HistoryNo gynecological history recorded. Obstetrics History GPAL:G 0 P 0 0 0 0 Past Encounters Encounter ID Performer Location Encounter Start Date Encounter Closed Date Diagnosis/Indication Diagnosis SNOMED-CT Code Diagnosis ICD10 Code Diagnosis Note [id number] NATHAN GREEN NP [facility] [address] [place] [address] 03/22/2020 15:49:36 03/24/2020 19:36:34 Low back strain 368308801 S39.012A Abdominal pain 72344895 R10.9 Health Concerns Section Related Observation LastModified by Organization Detai ls LastModified Time None Recorded Concern Status LastModified by Organization Details LastModified Time None Recorded Advance Directives Directive Y: Payers Insurance Date Sequence Insurance Name Policy Number Policy Narayanan Covered Member ID Narayanan Member ID Guarantor Name 11/27/2020 1 [place]: [facility] Afua Trujillo [id number] Afua Trujillo 03/22/2020 1 *SELF PAY* Afua Trujillo [id number] Afua Trujillo Notes Date Note Type Note Provider Name and Address Organization Details Recorded Time 03/22/2020 text/html States that the back pain started about a week ago and was mild at that time, it started to improve and then started to get worse a few nights ago. Last night she reports she had a weird flutter pain to her right flank , states that within an hour or half it has settled to the right flank. Reports she did have some RUQ discomfort last night as well. States that any movement makes the pain severe. Denies any recent injury. Denies any blood in her urine. She reports hx of IC and reports that her urinary stream is weak at this time. States she does have the urgency to urinate but then doesn't go a lot. NATHAN GREEN NP [address], [place], [address], [place] [facility] 03/22/2020 19:34:25 OBGyn Episode No OBEpisode recorded.
--- OUTSIDE RECORDS SUMMARY | 2025-05-02 21:35 | XMS_ITS | Patient Health Record ---
Author Organization [facility] Address [address] [id number] Care Team Providers Care Camp Head Counselor Name Role Phone NIELS SORTO Unavailable [phone] Allergies Allergen (clinical drug ingredient) Drug/Non Drug Allergy documented on EMR Reaction Allergy Type Onset Date Status quetiapine SEROquel Unknown Drug Allergy Active Vicodin Unknown Drug Allergy Active morphine Morphine Unknown Drug Allergy Active tramadol Tramadol Unknown Drug Allergy Active trazodone Trazodone Unknown Drug Allergy Active Results Component Value Reference Range Notes Urine Culture, Routine-[id number] 7 Reviewed date:05/04/2024 01:16:39 PM Interpretation:Positive Performing Lab:[facility], [address], [address], [place], Phone - [phone], Director - [facility] Notes/Report: Urine Culture, Routine Final report Result 1 Escherichia coli Greater than 100,000 colony forming units per mL Cefazolin <=4 ug/mL Cefazolin with an EVANS <=16 predicts susceptibility to the oral agents cefaclor, cefdinir, cefpodoxime, cefprozil, cefuroxime, cephalexin, and loracarbef when used for therapy of uncomplicated urinary tract infections due to E. coli, Klebsiella pneumoniae, and Proteus mirabilis. Antimicrobial Susceptibility S = Susceptible; I = Intermediate; R = Resistant P = Positive; N = Negative MICS are expressed in micrograms per mL Antibiotic RSLT#1 RSLT#2 RSLT#3 RSLT#4 Amoxicillin/Clavulanic Acid S Ampicillin S Cefepime S Ceftriaxone S Cefuroxime S Ciprofloxacin S Ertapenem S Gentamicin S Imipenem S Levofloxacin S Meropenem S Nitrofurantoin S Piperacillin/Tazobactam S Tetracycline S Tobramycin S Trimethoprim/Sulfa S Urinalysis Reviewed date:05/03/2024 09:03:38 AM Interpretation:Positive Performing Lab: Notes/Report: Positive Leukocytes 15 Nitrates pos Uro 0.2 Protein 15 pH 6.0 Blood - Spec Lee 1.025 Ketones 5 Bilirubin - Glucose - Reason For Referral No Information Medications Medication SIG (Take, Route, Frequency, Duration) Notes Start Date End Date Status Nicotine Patch Active Metoprolol Succinate 25 MG 1 capsule Ora lly Once a day for 30 day(s) Not-Taking Methadone HCl 5 MG/5ML 5 mL as needed Or ally every 12 hrs Active DULoxetine HCl 20 MG 1 capsule Orally Tw ice a day for 30 day(s) Active Nitrofurantoin Monohyd Macro 100 MG 1 capsule Orally Twice a day (every 12 hrs( for 7 days 05/02/2024 Active Ozempic Active Lisinopril 10 MG 1 tablet Orally Once a day for 30 day(s) Active clonazePAM 1 MG 1 tablet Orally Once a day Active Social History Sex Assigned At : Social History Observation Description Sex Assigned At Female Section Notes: Declines bw Problems Problem Type SNOMED Code ICD Code Onset Dates Problem Status W/U Status Risk Notes Problem Secondary amenorrhea (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) 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) Active confirmed Problem Amenorrhea, unspecified (N91.2) Active confirmed Vital Signs Blood pressure diastolic 69 mm Hg 05/02/2024 Height 65 in 05/02/2024 Blood pressure systolic 133 mm Hg 05/02/2024 Weight 205.5 lbs 05/02/2024 BMI 34.19 kg/m2 05/02/2024 Encounters Encounter Location Date Provider Diagnosis [address] [id number] 05/02/2024 NIELS SORTO Encounter for gynecological examination (general) (routine) without abnormal findings Z01.419 ; Dysuria R30.0 and Urinary Tract Infection N39.[address] [id number] 05/03/2024 NIELS SORTO Assessments Encounter Date Diagnosis (ICD Code) Assessment Notes Treatment Notes Treatment Clinical Notes Section Notes 05/02/2024 Encounter for gynecological examination (general) (routine) without abnormal findings (ICD-10 - Z01.419) Discussed routine screenings and self breast/chest awareness. Mammogram screening recommendations reviewed. Clt has a referral for mammogram screening already and plans to schedule soon. Pap guidelines reviewed. Pap due 2027. Reviewed hx of PCOS- cycles have been regulating since DM and Wt loss. Has access to progestin for withdrawal bleed if needed 05/02/2024 Dysuria (ICD-10 - R30.0) 05/02/2024 Urinary Tract Infection (ICD-10 - N39.0) UA indicative of UTI. Will send urine culture to confirm correct antibiotics. Reviewed warning signs for seeking out emergency care. 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
[2025-05-02 22:53] VITALS: BP 133/83; PULSE 72; RESP 17; TEMP 36.4; O2SAT 97
== END 2025-05-02 22:53 | disposition home or self-care (01) ==
PROVIDERS: Physician Assistant Medical; Emergency Provider Emergency Medicine; PCP Internal Medicine
DX: E11.65 Type 2 diabetes mellitus with hyperglycemia (principal); I10 Essential (primary) hypertension; J44.9 Chronic obstructive pulmonary disease, unspecified; F31.9 Bipolar disorder, unspecified; F41.9 Anxiety disorder, unspecified; F19.90 Other psychoactive substance use, unspecified, uncomplicated
CPT/HCPCS: 36415; 80048; 80076; 82803; 82947; 83735; 83880; 84484; 84702; 85025; 99283; 99284

== ENCOUNTER 2025-10-07 19:22 | Emergency (ER) | payer OTHER, SELFPAY ==
--- OUTSIDE RECORDS SUMMARY | 2025-05-03 05:30 | XMS_ITS ---
Author Organization [facility] Address [address] [place] [address] Care Team Providers Care Solution Professional Name Role Phone NIELS SORTO Unavailable [phone] REASON FOR VISIT Annual Exam Medications Medication SIG (Take, Route, Frequency, Duration) Notes Start Date End Date Status clonazePAM 1 MG Tablet 1 tablet Orally O nce a day Active DULoxetine HCl 20 MG Capsule Delayed Release Particles 1 capsule Orally Twice a day; Duration: 30 day(s) Active Methadone HCl 5 MG/5ML Solution 5 mL as needed Orally every 12 hrs Active Lisinopril 10 MG Tablet 1 tablet Orally Once a day; Duration: 30 day(s) Active Nitrofurantoin Monohyd Macro 100 MG Capsule 1 capsule Orally Twice a day (every 12 hrs(; Duration: 7 days 05/02/2024 Active Metoprolol Succinate 25 MG Capsule ER 24 Hour Sprinkle 1 capsule Orally Once a day; Duration: 30 day(s) Not-Taking/P RN Ozempic Active Nicotine Patch Active Social History Sex Assigned At : Social History Observation Description Sex Assigned At Female Encounters Encounter Location Date Provider Diagnosis [address] [id number] 08/2025 NIELS SORTO Plan Of Treatment No Information Progress Notes * Afua SAMSDOB: [birth year] (45 yo F)Acc No.[id number]:05/03/2025 Progress Notes Patient: Marta vasquezAfua lowe Provider: Mj SORTO :1980 A ge:44 Y S ex:Female Date:05/03/2025 Address: [address], [place], [id number] Subjective: * Chief Complaints: * A nnual Exam * Medications: T akingMethadone HCl 5 MG/5ML Solution 5 mL as needed Orally every 12 hrs Lisinopril 10 MG Tablet 1 tablet Orally Once a day clonazePAM 1 MG Tablet 1 tablet Orally Once a day DULoxetine HCl 20 MG Capsule Delayed Release Particles 1 capsule Orally Twice a day Ozempic Nicotine , Notes to Pharmacist: PatchNitrofurantoin Monohyd Macro 100 MG Capsule 1 capsule Orally Twice a day (every 12 hrs( Taking Methadone HCl 5 MG/5ML Solution 5 mL as needed Orally every 12 hrs Taking Lisinopril 10 MG Tablet 1 tablet Orally Once a day Taking clonazePAM 1 MG Tablet 1 tablet Orally Once a day Taking DULoxetine HCl 20 MG Capsule Delayed Release Particles 1 capsule Orally Twice a day Taking Ozempic Taking Nicotine , Notes to Pharmacist: PatchTaking Nitrofurantoin Monohyd Macro 100 MG Capsule 1 capsule Orally Twice a day (every 12 hrs( Not-Taking/PRNMetoprolol Succinate 25 MG Capsule ER 24 Hour Sprinkle 1 capsule Orally Once a day Not-Taking/PRN Metoprolol Succinate 25 MG Capsule ER 24 Hour Sprinkle 1 capsule Orally Once a day * Electronic signature of ROSMERY SORTO CNM on 10/07/2025 at 10:52 PM EST Sign off status: Pending * Provider: Mj SORTO Date: 0 05/03/2025 Generated for Kody capellan/Sia/Crista on: 1 12/08/2024 10:52 PM EST
--- NOTE | ~2025-10-07 | CT_ITS ---
CLINICAL HISTORY: flank pain, concern for stone CT abdomen and pelvis without contrast Comparison: [place] - US ABDOMEN - 01/19/23 08:35 EDT Findings: The lung bases are clear. Hepatic steatosis. Right hepatic lobe cyst. Cholecystectomy. No biliary duct dilatation. Fatty atrophy of the pancreas. There is a small accessory splenule. No adrenal masses. Nonobstructing calculus in the lower pole of the right kidney. Right upper pole cyst. No hydronephrosis. No urolithiasis on the left. No bowel obstruction, pneumatosis or pneumoperitoneum. Normal appendix. 3.2 cm left ovarian cyst. Urinary bladder is within normal limits. No acute fracture. IMPRESSION: 1. No acute intraabdominal or pelvic pathology. 2. Nonobstructing calculus in the lower pole of the right kidney. 3. 3.2 cm left ovarian cyst. This document has been electronically signed by: Victorino Lewis MD on 10/07/2025 21:49:53
[2025-10-07 19:34] VITALS: BP 177/92; PULSE 70; RESP 18; TEMP 36.9; O2SAT 96; BMI 31.3
--- NOTE | 2025-10-07 19:37 | ED_ITS ---
HPI - General Adult General Chief complaint: Back Pain/Injury Stated complaint: BACK PAIN Time Seen by Provider: 10/07/25 21:15 Source: patient Mode of arrival: ambulatory Limitations: no limitations History of Present Illness ED Provider: Dr. Dorothy Santoyo HPI narrative: 45-year-old female with a history of bipolar disorder, interstitial cystitis (IC), COPD, and diabetes who presents with severe suprapubic abdominal pain and left-sided flank/lower back pain that intensified today. She reports the pain began a few days ago, has progressively worsened, and became intolerable just prior to arrival (patient was on hands and knees due to severity). Pain is described as burning and internal, worse with movement (sitting up, coughing, bearing down) and localized mostly to the left flank/hip region. This episode is different from her usual right-sided muscular back pain. Earlier the area was tender to palpation, but not currently. Associated urinary symptoms include dysuria and markedly increased frequency/polyuria, consistent in part with her baseline IC but now ?ridiculous.? She denies hematuria or burning with urination. She endorses polydipsia over the past several weeks. No fever recognized. Gastrointestinal: nausea immediately prior to ED arrival (thought to be pain- induced), no vomiting. Last bowel movement was immediately before arrival and was normal; patient notes recent constipation but denies hematochezia. Gynecologic: LMP at end of last month; next menses due in ~5 days. No vaginal bleeding or discharge. Endocrine: Off semaglutide for ~1 month due to insurance issues; currently on metformin and glipizide without adequate glycemic control. Patient reports home glucometer values in the 400s. Reports blurry vision since discontinuing semaglutide. Pain management at home: Tylenol earlier today without relief. On methadone program; took dose today without change in pain. No other analgesics taken. Related Data Previous Rx's ?Medication ?Instructions ?Recorded cefuroxime axetil 250 mg tablet 250 mg PO BID 14 days #28 tabs 09/23/23 ketorolac 10 mg tablet 10 mg PO TID PRN pain 5 days #15 09/23/23 tabs prednisone 20 mg tablet 20 mg PO DAILY 5 days #5 tab s 09/23/23 tamsulosin 0.4 mg capsule (Flomax) 0.4 mg PO DAILY 2 w eeks #14 caps 09/23/23 cefuroxime axetil 250 mg tablet 250 mg PO Q12H 7 days #14 tabs 10/08/25 insulin regular human 100 unit/mL 8 unit (0.08 mL) sub cut BID #15 mL 10/08/25 (3 mL) subcutaneous pen (Novolin R FlexPen) ketorolac 10 mg tablet 10 mg PO Q8H PRN pain #30 ta bs 10/08/25 ondansetron 4 mg disintegrating 4 mg PO Q8H PRN nausea and 10/08/25 tablet vomiting #10 tabs Allergies Allergy/AdvReac Type Severity Reaction Status Date / Time trazodone (TRAZODONE) Allergy Unknown ANXIETY Verified 10/07/25 19:36 diazepam (From VALIUM) AdvReac Intermediate TREMORS Verified 10/07/25 19:36 hydrocodone (HYDROCODONE) AdvReac Intermediate NAUSEA & Verified 10/07/25 19:36 VOMITING From ULTRAM Allergy Unknown AGITATION Uncoded 10/07/25 19:36 [facility] Past Medical History Medical History Anxiety Bipolar 1 disorder COPD (chronic obstructive pulmonary disease) Interstitial cystitis Opiate addiction PVC (premature ventricular contraction) Social History Social History Smoked in Last 30 Days: Yes Use of substances other than those prescribed or required for medical reasons: Yes Substance Use Type: Heroin Advance Directives: No Advance Directives Information Provided: Yes Physical Exam ED Vital Signs: Vital Signs - 24 hr 10/07/25 19:34 10/07/25 22:21 Temperature 98.4 F 98.5 F Pulse Rate 70 62 Respiratory Rate 18 18 Blood Pressure 177/92 H 138/81 Pulse Oximetry 96 96 Oxygen Delivery Method Room Air Room Air BMI result Body Mass Index 31.3 Course Course Course Narrative: Rapid medical examination performed in triage by Sabine Espinoza PA-C: Patient is a 45 year old female presenting to the emergency department with flank and back pain that is intermediate. Detailed physical exam and review of systems are deferred to the news anchor. Labs and imaging ordered. Patient placed back in the waiting room pending room availability and results. Medications Administered Discontinued Medications Generic Name Dose Route Start Last Admin Trade Name Freq PRN Reason Stop Dose Admin Acetaminophen 650 mg 12/15/25 23:31 10/07/25 23:58 Acetaminophen 325 Mg Tablet PO 10/07/25 23:32 650 mg ONCE ONE Administration Lactated Ringer's 2,000 mls @ 999 mls/hr 10/07/25 21:42 10/07/25 23:58 Lr IV 10/07/25 23:42 Infused .Q2H1M ONE Infusion Ceftriaxone Sodium 1 gm/ 50 mls @ 100 mls/hr 10/07/25 21:42 10/07/25 22:55 Sodium Chloride IV 10/07/25 22:11 Infused ONCE ONE Infusion Ketorolac Tromethamine 15 mg 10/07/25 21:42 10/07/25 22:11 Ketorolac Tromethamine 15 Mg/Ml Vial IVPUSH 10/07/25 21:43 15 mg ONCE ONE Administration Ondansetron HCl 4 mg 10/07/25 21:42 10/07/25 22:11 Ondansetron Hcl 4 Mg/2 Ml Vial IVPUSH 10/07/25 21:43 4 mg ONCE ONE Administration Medical Decision Making Medical Decision Making MDM Narrative: 45-year-old female with poorly controlled type 2 diabetes, IC, and new onset severe left flank/suprapubic pain. Differential diagnosis is certainly broad and includes but is not limited to kidney stone, infection such as pyelonephritis, vascular pathology, among many others.? UA positive for nitrates/bacteria; CT negative for stones. Hyperglycemia likely multifactorial (infection, medication lapse, volume depletion). Not in DKA. Plans discussed and orders placed as below. Problem #1: Hyperglycemia / Type 2 Diabetes Mellitus Assessment: BG >400 mg/dL, off GLP-1 agonist for one month, inadequate control on metformin/glipizide; volume depletion contributing. Plan: * IV fluids (several liters) for volume contraction. * Encouraged patient to follow up with primary care for long-term diabetes management. * Short course of long-acting insulin provided today (NPH). Problem #2: Suspected Urinary Tract Infection (? early pyelonephritis) Assessment: Dysuria, flank pain, UA with nitrates & 3+ bacteria; CT without stones. Not currently septic. Plan: * Empiric IV antibiotics in ED. * Discharge prescription for oral antibiotics; first home dose tomorrow. Problem #3: Acute Left Flank / Suprapubic Pain Assessment: Severe burning internal pain, likely related to infection; no stone on CT. Plan: * IV analgesia per ED protocol. * Reassess pain after fluids/analgesics; adjust as needed considering medication intolerances. Problem #4: Nausea Assessment: Pain-induced nausea prior to arrival; resolved in ED. Plan: * IV antiemetic PRN to prevent vomiting. Follow-Up: Patient advised to schedule appointment with PCP for diabetes management. 12:41 AM 10/08/2025 (Dr. Dorothy Santoyo, D.Adelso.) pain significantly improved after Toradol. She is resting comfortably on the stretcher at this time. Blood sugar improved after IV fluids. Given insulin as well. She has an elevation in her white blood cell count as well as significantly elevated blood glucose likely related to infectious process and this will be treated outpatient for now. Using shared decision making, plan for discharge home to follow-up with primary care and/or specialist.? Patient understands and agrees with plan for discharge.? Discharged home in stable condition. Differential Diagnosis Differential Diagnoses: The differential diagnosis associated with the presentation includes (As above) Admission/Observation Consideration of admission/observation: Escalation of care including admission/observation considered Lab Data MDM Lab Attestation statement: I reviewed the patient's lab results. 10/07/25 20:14 10/07/25 20:14 Labs: Lab Results 10/07/25 10/08/25 Range/Units 20:14 00:06 WBC 16.1 H (4.8-10.8) X10*3/uL RBC 5.47 (4.20-5.50) X10*6/uL Hgb 15.7 (12.0-16.0) g/dl Hct 47.0 (37.0-47.0) % MCV 85.9 (80.0-98.0) fL MCH 28.7 (27.0-33.0) pg MCHC 33.4 (31.0-35.0) g/dl RDW 13.7 (11.0-16.0) % Plt Count 315 (160-400) X10*3/uL MPV 9.8 (9.4-12.3) fL Immature Gran % (Auto) 0.7 H (0.0-0.4) % Neut % (Auto) 77.1 H (45-73) % Lymph % (Auto) 15.6 L (20-40) % [place] % (Auto) 5.4 (2-11) % Eos % (Auto) 0.6 (0-4) % Baso % (Auto) 0.6 (0-2) % Lymph # (Auto) 2.5 (1.2-4.9) X10*3/uL [place] # (Auto) 0.9 (0.1-1.2) X10*3/uL Eos # (Auto) 0.1 (0.0-0.4) X10*3/uL Baso # (Auto) 0.1 (0.0-0.2) X10*3/uL Abs Immat Gran (auto) 0.11 H (0.00-0.03) X10*3/uL Absolute Neuts (auto) 12.4 H (2.0-8.3) x10*3/uL Absolute Nucleated RBC 0.000 (0.0-0.012) X10*3/uL Nucleated RBC % (auto) 0.0 (0.0-0.2) /100WBC Sodium 130 L (135-145) mmol/L Potassium 4.2 (3.3-5.1) mmol/L Chloride 99 (96-108) mmol/L Carbon Dioxide 23 (22-29) mmol/L Anion Gap 12 (12-20) BUN 7 L (9-16) mg/dL Creatinine 0.67 (0.5-1.4) mg/dL Estim Creat Clear Calc 113.2 Estimated GFR > 60 POC Glucose 279 H (60-115) mg/dL Random Glucose 426 H* (60-115) mg/dL Calcium 9.4 (8.4-10.2) mg/dL Magnesium 1.8 (1.6-2.6) mg/dL Total Bilirubin 0.5 (0.0-1.0) mg/dL AST 29 (5-31) U/L ALT 39 H (0-31) U/L Alkaline Phosphatase 193 H (39-117) U/L Total Protein 7.4 (6.5-8.0) g/dL Albumin 4.2 (3.5-5.0) g/dL Urine Color Yellow Urine Appearance Cloudy Urine pH 5.5 (5.0-9.0) Ur Specific [place] >= 1.030 H (1.005-1.025) Urine Protein 30 (1+) H (Neg-Trace) mg/dL Urine Glucose (UA) 500 H (Negative) mg/dL Urine Ketones 15 (Negative) mg/dL Urine Blood Large (3+) H (Negative) Urine Nitrite Positive H (Negative) Ur Leukocyte Esterase Negative (Negative) Urine RBC >20 H (0-2) /HPF Urine WBC 0-5 (0-5) /HPF Ur Squamous Epith Cells 0-2 (0-2) /HPF Urine Bacteria 3+ (None Seen) Hyaline Casts 0-2 (0-2) /LPF Influenza Type A (PCR) NEGATIVE (Negative) Influenza Type B (PCR) NEGATIVE (Negative) RSV RNA Qual (PCR) NEGATIVE (Negative) SARS-CoV-2 RNA (RT-PCR) NEGATIVE (Negative) Radiology Impression Discussion of test interpretation with radiology: I have reviewed the radiologist's reading. Independent Historian Clinical information obtained from an independent historian. History obtained from or confirmed by: Spouse External Record Review External record reviewed: Inpatient record Prescription Management I considered prescription management with: Pain Medication and Antibiotic Chronic Conditions Patient?s care impacted by: Diabetes, Hypertension and Other (COPD, substance use disorder on methadone) Social Determinants Patient?s care significantly limited by Social Determinants of Health including: Other Social Determinant of Health Discharge Plan Discharge Clinical Impression: UTI (urinary tract infection), Acute left flank pain, Uncontrolled diabetes mellitus with hyperglycemia Patient Disposition: Home, Self-Care Instructions: Urinary Tract Infection in Women (DC), Type 2 Diabetes Management for Adults (ED) Additional Instructions: Take your antibiotic as prescribed until the course is completed. Do not stop this medication early if you start to feel better. Return to the emergency department with any new or worsening symptoms including: Worsening pain, fevers greater than 100? despite antibiotic treatment, vomiting, or any new symptom that concerns you. Call 911 with any medical emergency. You need to follow up with your primary care doctor regarding insulin prescriptions. Start at 8 units twice a day and increase the dose if your blood sugars are not improving. Return to the hospital with any worsening symptoms. Prescriptions: New cefuroxime axetil 250 mg tablet 250 mg PO Q12H 7 Days Qty: 14 0RF ondansetron 4 mg tablet,disintegrating 4 mg PO Q8H PRN (Reason: nausea and vomiting) Qty: 10 0RF Novolin R FlexPen 100 unit/mL (3 mL) insulin pen 8 unit subcut BID Qty: 15 0RF ketorolac 10 mg tablet 10 mg PO Q8H PRN (Reason: pain) Qty: 30 0RF Rx Instructions: maximum total duration of 5 days from all oral, intranasal, or parenteral formulations No Action cefuroxime axetil 250 mg tablet 250 mg PO BID 14 Days Qty: 28 0RF prednisone 20 mg tablet 20 mg PO DAILY 5 Days Qty: 5 0RF ketorolac 10 mg tablet 10 mg PO TID PRN (Reason: pain) 5 Days Qty: 15 0RF tamsulosin [Flomax] 0.4 mg capsule 0.4 mg PO DAILY 14 Days Qty: 14 0RF Print Language: Tajik
[2025-10-07 20:21] LABS: MANUAL DIFF FLAG NO
[2025-10-07 20:22] LABS: Hematocrit 47.0 % (37.0-47.0); Hemoglobin 15.7 g/dl (12.0-16.0); Imm Gran Abs Auto 0.11 X10*3/uL (0.00-0.03); Imm Gran Pct Auto 0.7 % (0.0-0.4); Lymphocytes Absolute Auto 2.5 X10*3/uL (1.2-4.9); Mean Corpuscular HGB Conc 33.4 g/dl (31.0-35.0); Mean Corpuscular Hemoglobin 28.7 pg (27.0-33.0); Mean Corpuscular Volume 85.9 fL (80.0-98.0); NRBC Abs Auto 0.000 X10*3/uL (0.0-0.012); NRBC Pct Auto 0.0 /100WBC (0.0-0.2); Platelet Count 315 X10*3/uL (160-400); Red Blood Count 5.47 X10*6/uL (4.20-5.50); White Blood Count 16.1 X10*3/uL (4.8-10.8)
[2025-10-07 20:23] LABS: Appearance Urine Cloudy; Glucose Urine UA 500 mg/dL (Negative); PH 5.5 (5.0-9.0); Specific Gravity - Urine >= 1.030 (1.005-1.025); UMIC TRIGGER UACC YES
[2025-10-07 20:33] LABS: UACC Culture Trigger YES
[2025-10-07 20:41] LABS: Alanine Aminotransferase 39 U/L (0-31); Albumin Level 4.2 g/dL (3.5-5.0); Alkaline Phosphatase 193 U/L (39-117); Anion Gap 12 (12-20); Aspartate Amino Transferase 29 U/L (5-31); Blood Urea Nitrogen 7 mg/dL (9-16); Calcium 9.4 mg/dL (8.4-10.2); Carbon Dioxide 23 mmol/L (22-29); Chloride 99 mmol/L (96-108); Creatinine Clr Calc Pharmacy 113.2; Estimated Glomerular Filt Rate > 60; Magnesium 1.8 mg/dL (1.6-2.6); Potassium 4.2 mmol/L (3.3-5.1); Sodium 130 mmol/L (135-145); Total Protein 7.4 g/dL (6.5-8.0)
[2025-10-07 21:00] LABS: Resp Syncy Virus RNA Qual PCR NEGATIVE (Negative); SARS COV2 PCR INHOUSE NEGATIVE (Negative)
[2025-10-07] MEDS: Lactated Ringers 2,000 ML 999 ML IV (22:15)
[2025-10-07 22:21] VITALS: BP 138/81; PULSE 62; RESP 18; TEMP 36.9; O2SAT 96
--- NOTE | 2025-10-07 22:25 | PC.NURSE ---
Pt medicated per dec Pt ambulates independently w/ steady gait Plan of care ongoing.
--- OUTSIDE RECORDS SUMMARY | 2025-10-07 22:52 | XMS_ITS | Data Portability ---
Author Organization [place] [facility] Address [address] [place] [id number] Assessment Encounter Date Assessment Date Assessment LastModified [...] mg/mL (1 mL) injection solution 2019 020 [id number], [address], [place], [id number], 0 17:53:36 Patient TargetsNo targets recorded. Patient Instructions Encounter Date Encounter Id Patient Instructions Last Modified By Organization Details Last Modified Time 03/22/2020 [id number] Back Pain - Discharge Instructions Basic Information: [...] this pain, you can find demonstrations on [employer] Weight loss will help to relieve stress [...] in your condition between 8am-10pm, please call [facility] at [phone] to help navigate your care. courtney Not available 03/22/2020 15:58:08 Reason for Referral None Reported. Problems Name Problem SNOMED Code Status Onset Date Resolution Date Notes Provider Name and Address Organization Details Recorded Time Chronic obstructive pulmonary disease 83179133 Active 2019 NATHAN GREEN , [place] [facility] [address], [place], [address], [place] [facility] 0 15:54:27 Problem Notes None recorded. Medical Equipment None Reported. Allergies Allergen ID Allergen Name Allergen Category Reaction Reaction Severity Criticality Documentation Date Start Date Code Code System Note Provider Name and Address Organization Details Recorded Time 797143 acetamino phen / hydrocodo ne medicatio n Not available Not available Not available 03/22/2020 58163 2 RxNorm NATHAN GREEN , [place] [facility] [address], [place], [address], [place] [facility] 0 15:56:58 024599 tramadol medicatio n Not available Not available Not available 03/22/2020 12772 RxNorm NATHAN GREEN , [place] [facility] [address], [place], [address], [place] [facility] 0 15:57:03 510185 trazodone medicatio n Not available Not available Not available 03/22/2020 11571 RxNorm NATHAN GREEN , [place] [facility] [address], [place], [address], [place] [facility] 0 15:57:27 [...] Vitals Date Recorded Body temperature Oxygen saturation Heart rate Respiratory rate Systolic And Diastolic Provider Name and Address Organization Details Last Updated DateTime 0 98.2 [degF] 95 % 68 /min 16 /min 160/100 mm[Hg] Not Available [facility] 0 15:53:23 Social History Question Answer Notes LastModified by Organizat ion Details LastModified Time Tobacco Smoking Status Current Every Day Smoker NATHAN GREEN NP [address] [place], [address], [place] [facility] 03/22/2020 15:55:57 Do You Have An Advance [...] History Nothing Reported. Medical History Condition Response COPD Y Asthma N Hypertension Y Gynecological HistoryNo gynecological history recorded. Obstetrics History GPAL:G 0 P 0 0 0 0 Past Encounters Encounter ID Performer Location Encounter Start Date Encounter Closed Date Diagnosis/Indication Diagnosis SNOMED-CT Code Diagnosis ICD10 Code Diagnosis IMO Codes Diagnosis Note [id number] NATHAN GREEN NP [facility] [address] [place] [address] 03/22/2020 15:49:36 03/24/2020 19:36:34 Low back strain 911651655 S39.012A Abdominal pain 54087971 R10.9 Health Concerns Section Related Observation LastModified by Organization Detai ls LastModified Time None Recorded Concern Status LastModified by Organization Details LastModified Time None Recorded Advance Directives Directive Y: Payers Insurance Date Sequence Insurance Name Policy Number Policy Narayanan Covered Member ID Narayanan Member ID Guarantor Name 11/27/2020 1 [place] [facility] Afua Trujillo [id number] Afua Trujillo 03/22/2020 1 *SELF PAY* Afua Trujillo [id number] Afua Belleau Notes Date Note Type Note Provider Name and Address Organization Details Recorded Time 03/22/2020 text/html General HPI Template - DHReported by Patient States that the back pain started about [...] but then doesn't go a lot. NATHAN GREEN, SAY [address], [place], [address], [place] [facility] 03/22/2020 19:34:25 OBGyn Episode No OBEpisode recorded.
--- OUTSIDE RECORDS SUMMARY | 2025-10-07 22:53 | XMS_ITS | Patient Health Record ---
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 [employer] Name Role Phone Margie Concepcion CNP Primary Care Provider Unavail able Jimbo Nascimento Unavailable [phone] Allergies Allergen (clinical drug ingredient) Drug/Non Drug Allergy documented on EMR Reaction Allergy Type Onset Date Status Vicodin Unknown Drug Allergy Active tramadol Tramadol Unknown Drug Allergy Active Reason For Referral No Information Medications Medication SIG (Take, Route, Frequency, Duration) Notes Start Date End Date Status Ozempic (0.25 or 0.5 MG/DOSE) 2 MG/3ML Solution Pen-injector Subcutaneous; Duration: 28 Active Metoprolol Succinate 100 MG Capsule ER 24 Hour Sprinkle 1 capsule Orally Once a day; Duration: 30 day(s) 02/26/2022 Active Docusate Sodium 100 MG Capsule TAKE ONE CAPSULE BY MOUTH EVERY DAY NEEDED FOR CONSTIPATION Oral; Duration: 90 Active clonazePAM 1 MG Tablet TAKE 1 TABLET BY MOUTH THREE TIMES DAILY NEEDED Diagnosis Unavailable Oral; Duration: 30 Active Metoprolol Succinate ER 50 MG Tablet Extended Release 24 Hour TAKE 1 TABLET BY MOUTH DAILY Oral; Duration: 30 Active Miconazole Nitrate 2 % Cream APPLY TOPICALLY TWICE DAILY External; Duration: 30 Active Methadone HCl 40 MG Tablet Soluble 1 tablet in 4 ounces of water or juice Orally Once a day 02/26/2022 Active DULoxetine HCl 20 MG Capsule Delayed Release Particles 1 capsule Orally Twice a day; Duration: 30 day(s) 02/26/2022 Active FreeStyle Lancets - Miscellaneous USE DIRECTED ONCE DAILY; Duration: 90 Active Lisinopril 10 MG Tablet TAKE 1 TABLET BY MOUTH DAILY Oral; Duration: 30 Active Immunizations Vaccine Route Administration Date Status Comme nts Influenza Unknown 02/26/2022 Refused Social History Tobacco Use: Social History Observation Description Date Details (start date - stop date) Current Smoker NA - NA Social History Drugs/Alcohol: Social Info Question Answer Notes Alcohol Screen Did you have a drink containing alcohol in the past year? No Points 0 Interpretation Negative Tobacco Use: Social Info Question Answer Notes Tobacco Use/Smoking Patient is a current smoker Additional Details Category Social Info Options Details Miscellaneous: Marital status: single, simmons s a significant other Occupation: unemployed Section Notes: 1/2 ppd, no sig alcohol IVDA with sobriety for 4 years as of the 02/2022 OV 1 ppd, no sig alcohol IVDA with sobriety for 4 years as of the 02/2022 OV 10/25 ppd, no sig alcohol IVDA with sobriety for 4 years as of the 02/2022 OV 10/25 ppd, no sig alcohol IVDA with sobriety for 4 years as of the 02/2022 OV Problems Problem Type SNOMED Code ICD Code Onset Dates Problem Status W/U Status Risk Notes Problem Abdominal bloating (755750199) Abdominal bloating (R14.0) Active confirmed Problem Hepatitis B (62816397) Hepatitis B (B19.10) Active confirmed Problem Elevated liver enzymes level (891551603) Elevated liver function tests (R79.89) Active confirmed Problem Fatty liver (365352182) Fatty liver (K76.0) Active confirmed Problem Constipation (01934760) Constipation, unspecified constipation type (K59.00) Active confirmed Problem Hepatomegaly (72614065) Hepatomegaly (R16.0) Active confirmed Problem Chronic type B viral hepatitis (86836844) Chronic hepatitis B (B18.1) Active confirmed Plan Of Treatment Pending Test Test Name Order Date LIVER PROFILE 02/26/2022 LIVER PROFILE 01/27/2023 LIVER PROFILE 07/28/2023 LIVER PROFILE 07/31/2022 IRON + IBC (FE) 02/26/2022 CBC w DIFF 02/26/2022 CBC w DIFF 01/27/2023 CBC w DIFF 07/28/2023 PROTHROMBIN TIME (PT, INR) 02/26/2022 HEPATITIS B PROFILE 07/31/2022 [id number] (A1A) 02/26/2022 ALPHA-FETOPROTEIN,TUMOR MARKER 04/06/202 3 ALPHA-FETOPROTEIN,TUMOR MARKER 3 ALPHA-FETOPROTEIN,TUMOR MARKER 2 HEPATITIS B E ANTIBODY 07/31/2022 HEPATITIS B E ANTIGEN 07/31/2022 HEPATITIS B VIRAL DNA QUANT 07/28/2023 US ABD 07/29/2022 FLUOR. ANTINUCLEAR AB SCREEN (NORMA) 03/2022 TSH REFLEX FREE T4 02/26/2022 HEPATITIS B DNA QN PCR RFLX HBV GENOTYPE 07/31/2022 Prothrombin Time INR 07/28/2023 Prothrombin Time INR 01/27/2023 Ferritin 02/26/2022 Ceruloplasmin 02/26/2022 Liver Fibrosis Pnl 02/26/2022 Liver Fibrosis Pnl 07/28/2023 Mitochondrial Antibody 02/26/2022 Smooth Muscle Antibody 02/26/2022 Hepatitis B,C Profile 02/26/2022 Hepatitis A Antibody IgG 02/26/2022 Hepatitis Delta Antibody 07/31/2022 US abdomen comp w elastography 3 HIV Ab/Ag 07/31/2022 Insurance Providers Payer Name Payer Address Payer Phone Subscriber Number Group Number Insured Name Patient Relationship to Insured Coverage Start Date Coverage End Date [facility] [address] [place] [address] [id number] LUISANA SAMS Self - patient is the insured MEDICAID OF [facility] [address] [place] [address] [id number] LUISANA SAMS Self - patient is the insured Medical (General) History Medical History History ICD Code COPD Interstitial cystitis--sees a Urologist at [facility] for bladder infusions Fatty liver, hepatomegaly--CT and U/S in 09/2021 Denies MD,DM,CVA,renal disease Hx of PVC's Fatigue EGD/Colonoscopy at [facility] 2018--report edly unremarkable HTN Depression NIDDM diagnosed 03/2022 Chronic Hepatitis B antigen infection, but negative Hep B DNA and negative hep BE antigen Surgical History Surgery Date(Month/Year) CCY 2009 Teeth 2018
--- OUTSIDE RECORDS SUMMARY | 2025-10-07 22:53 | XMS_ITS | Patient Health Record ---
Author Organization [facility] Address [address] [place] [address] Care Team Providers Care Public Relations Consultant Name Role Phone NIELS SORTO Unavailable [phone] Allergies Allergen (clinical drug ingredient) Drug/Non Drug Allergy documented on EMR Reaction Allergy Type Onset Date Status quetiapine SEROquel Unknown Drug Allergy Active Vicodin Unknown Drug Allergy Active morphine Morphine Unknown Drug Allergy Active tramadol Tramadol Unknown Drug Allergy Active trazodone Trazodone Unknown Drug Allergy Active Reason For Referral [...] Once a day; Duration: 30 day(s) Active Metoprolol Succinate 25 MG Capsule ER 24 Hour Sprinkle 1 capsule Orally Once a day; Duration: 30 day(s) Not-Taking/P RN Nitrofurantoin Monohyd Macro 100 MG Capsule 1 capsule Orally Twice a day (every 12 hrs(; Duration: 7 days 05/02/2024 Active Ozempic Active Nicotine Patch Active Social History Sex Assigned At : Social History Observation Description Sex Assigned At Female Social History HIV Risk Assessment Social Info Question Answer Notes Additional Questions Is an HIV Risk Asse ssment being conducted? No Reproductive Life Plan: Social Info Question Answer Notes Reproductive Life Plan: Do you want to have chil dren? No, I don't want to have children How sure are you that you will be able to use your control method without any problems? Very sure People's plans change. Is it possible you or your partner could ever decide to become ? No Human Trafficking: Social Info Question Answer Notes Human Trafficking Experienced: No PrEP for HIV: Social Info Question Answer Notes PrEP for HIV Is the client patrick matute in beginning/continuing PrEP for HIV? No Sexual History: Social Info Question Answer Notes Sexual History: Sexual History Reviewed: Partner s, Practices, Protection/Past STIs Currently sexually active? 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 No Date of last unprotected intercourse: 04/14/2024 Number of partners in past 3 months: 1 Number of partners in past year: 1 Does your partner(s) currently have any STIs? No Counseling Provided: Social Info Question Answer Notes Counseling Provided Please indicate the length of time, in minutes, that counseling was provided. 7 Counseling Was Provided By: [facility] Drugs/Alcohol: Social Info Question Answer Notes Drug/Alcohol Use Do you or have you u sed drugs? No per client Food Access: Social Info Question Answer Notes Food Access The Client's current access to food is Secure Food Access Relationships: Social Info Question Answer Notes Relationships Has the client exper ienced any of the following: Client has never experienced harmful relationships Housing Social Info Question Answer Notes Housing The client's current living situation is: stable housing Tobacco Use: Social Info Question Answer Notes Tobacco Use: Do you/have you used tobacco? Yes, currently Tobacco Smoking Status Current every day smoker Section Notes: Declines bw Problems Problem Type SNOMED Code ICD Code Onset Dates Problem Status W/U Status Risk Notes Problem Secondary amenorrhea (484915051) 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) Active confirmed Problem Amenorrhea (27083216) Amenorrhea, unspecified (N91.2) Active confirmed Plan Of Treatment No Information Insurance Providers Payer Name Payer Address Payer Phone Subscriber Number Group Number Insured Name Patient Relationship to Insured Coverage Start Date Coverage End Date [place] [address] [place] [id number] Afua Trujillo Self - patient is the insured Medical (General) History Medical History History ICD Code COPD Overactive bladder 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
[2025-10-08 00:10] LABS: Glucose, Whole Blood 279 mg/dL (60-115)
[2025-10-08] MEDS: Insulin Glargine,Hum.rec.anlog 100 UNIT/ML 10 ML VIAL 8 UNIT SUBCUT (00:31)
[2025-10-08 00:37] VITALS: BP 137/71; PULSE 60; RESP 16; TEMP 36.9; O2SAT 96
[2025-10-08 01:05] VITALS: BP 137/71; PULSE 60; RESP 16; TEMP 36.9; O2SAT 96
== END 2025-10-08 01:15 | disposition home or self-care (01) ==
PROVIDERS: Physician Assistant Medical; Emergency Provider Emergency Medicine; PCP Nurse Practitioner Family
DX: N39.0 Urinary tract infection, site not specified (principal); M54.50 Low back pain, unspecified; R10.24 Suprapubic pain; Z03.818 Encounter for observation for suspected exposure to other biological agents ruled out; E11.9 Type 2 diabetes mellitus without complications; J44.9 Chronic obstructive pulmonary disease, unspecified; N20.0 Calculus of kidney; N83.202 Unspecified ovarian cyst, left side
CPT/HCPCS: 74176; 80053; 81001; 82947; 83735; 85025; 87086; 87088; 87186; 87637; 96365; 96375; 99284; J0696; J1885; J2405; J7120

== ENCOUNTER → 2025-10-07 19:38 | Outpatient (BNV) | payer OTHER, SELFPAY | PROVIDERS: Emergency Provider Emergency Medicine; PCP Nurse Practitioner Family; Visit Provider Radiology Diagnostic Radiology | DX: N20.0 Calculus of kidney (principal); N83.202 Unspecified ovarian cyst, left side | CPT/HCPCS: 74176 ==